=== PATIENT | female | born 1985 | race Caucasian/White ===

== ENCOUNTER → 2019-11-18 13:17 | Outpatient (BNVA) | payer BC, SELFPAY | PROVIDERS: Family Provider Family Medicine; PCP Family Medicine; Visit Provider Nurse Practitioner Women's Health | DX: O09.299 Supervision of pregnancy with other poor reproductive or obstetric history, unspecified trimester (principal); O24.311 Unspecified pre-existing diabetes mellitus in pregnancy, first trimester; E11.65 Type 2 diabetes mellitus with hyperglycemia; Z79.4 Long term (current) use of insulin; O24.811 Other pre-existing diabetes mellitus in pregnancy, first trimester; O09.521 Supervision of elderly multigravida, first trimester; O99.331 Smoking (tobacco) complicating pregnancy, first trimester; F31.9 Bipolar disorder, unspecified | CPT/HCPCS: 36415; 83036; 84315; 84443 ==

== ENCOUNTER → 2019-11-23 16:05 | Outpatient (BNVA) | payer BC, SELFPAY | PROVIDERS: Family Provider Family Medicine; PCP Family Medicine; Referring Provider Obstetrics & Gynecology; Visit Provider Obstetrics & Gynecology | DX: Z34.90 Encounter for supervision of normal pregnancy, unspecified, unspecified trimester (principal) | CPT/HCPCS: 36415; 84702 ==

== ENCOUNTER → 2019-11-24 10:46 | Outpatient (BNVA) | payer BC, SELFPAY | PROVIDERS: Family Provider Family Medicine; PCP Obstetrics & Gynecology; Visit Provider Nurse Practitioner | DX: F33.2 Major depressive disorder, recurrent severe without psychotic features (principal) | CPT/HCPCS: 99214; 99215 ==

== ENCOUNTER → 2019-11-25 17:27 | Outpatient (BNVA) | payer BC, SELFPAY | PROVIDERS: Family Provider Family Medicine; PCP Obstetrics & Gynecology; Visit Provider Obstetrics & Gynecology | DX: O09.521 Supervision of elderly multigravida, first trimester (principal); O20.0 Threatened abortion; E11.65 Type 2 diabetes mellitus with hyperglycemia; F31.9 Bipolar disorder, unspecified; O99.331 Smoking (tobacco) complicating pregnancy, first trimester | CPT/HCPCS: 80307; 84315; 84702; 85027; 86592; 86762; 86803; 86850; 86900; 87086; 87340 ==

== ENCOUNTER → 2019-12-06 11:58 | Outpatient (BNVA) | payer BC, SELFPAY | PROVIDERS: Family Provider Family Medicine; PCP Obstetrics & Gynecology; Referring Provider Obstetrics & Gynecology; Visit Provider Obstetrics & Gynecology | DX: O02.0 Blighted ovum and nonhydatidiform mole (principal) | CPT/HCPCS: 84702 ==

== ENCOUNTER → 2019-12-13 09:05 | Outpatient (BNVA) | payer BC, SELFPAY | PROVIDERS: Family Provider Family Medicine; PCP Obstetrics & Gynecology; Visit Provider Obstetrics & Gynecology | DX: E11.9 Type 2 diabetes mellitus without complications (principal); O02.0 Blighted ovum and nonhydatidiform mole | CPT/HCPCS: 36416; 80069; 82575; 82962; 84315; 84702 ==

== ENCOUNTER 2020-01-10 14:04 | Outpatient (CLI) | payer BC, SELFPAY ==
--- NOTE | 2020-01-10 | US_ITS ---
WS: [id number] TRANSVAGINAL PELVIC ULTRASOUND HISTORY: AMENORRHEA COMPARISON: None available. Uterus: 7.3 cm x 4.2 cm x 3.7 cm. Normal size anteverted uterus. No fibroid or mass. Endometrium: 0.4 cm. Mildly heterogeneous contents of the endometrium. No gestational sac. Right ovary: 2.3 cm x 1.5 cm x 2.5 cm. Small follicles. No solid mass. Left ovary: 4.0 cm x 3.8 cm x 2.8 cm. Complex cystic mass associated with the LEFT ovary measures 3.3 x 2.9 x 3.8 cm. Low level echoes. Retracting clot is identified. No free fluid. US/US transvaginal [id number] IMPRESSION: 1. No intrauterine gestation identified. 2. Complex cyst in the LEFT adnexa is probably a hemorrhagic cyst. 3. With a positive test ectopic is not excluded. Recommend serial follow-up with beta hCGs and follow-up ultrasound in one week.
== END 2020-01-10 14:05 | disposition home or self-care (01) ==
LOC: RADOUTREAD 01-11 08:34
PROVIDERS: Family Provider Family Medicine; PCP Obstetrics & Gynecology; Visit Provider Physician Assistant
DX: Z76.89 Persons encountering health services in other specified circumstances (principal)

== ENCOUNTER 2020-02-28 10:25 | Emergency (ER) | payer SELFPAY ==
[2020-02-28 10:38] VITALS: BP 132/105; PULSE 126; RESP 18; TEMP 36.6; O2SAT 99; BMI 24.3
--- NOTE | 2020-02-28 10:57 | W.ED.EXTPRO ---
HPI - Extremity Problem General: Chief complaint: Extremity Problem,Nontraumatic Stated complaint: SWELLING IN BOTH HIPS Time Seen by Provider: 02/28/20 10:47 History of Present Illness: HPI Narrative: Patient is a 34-year-old female who comes to the ED with right and left hip pain. Pain started about a month ago and has since progressed. Pain is localized to the lateral aspect of the hip and the right hip is more painful than the left hip. Patient denies any trauma or injury to cause pain. Patient did say she has been sleeping in her daughters bed recently which is a hard mattress and she thinks that has caused some of her pain. She has taken some hydrocodone tablets that were left over from a prior issue for her pain. She has not taken any pain medication today or this morning. Pain is worse when she is sitting or laying on right or left hip. Pain is very mild and improves when she is up and moving around. Currently rates pain at 10 out of 10 while here in the ED. She is also having some pain when she urinates that started a couple days ago, but denies any blood in the urine. Associated symptoms: Deny chest pain, fever(s) or rash Review of Systems Const: Denies: fever, chills or fatigue Eyes: Denies: change in vision or eye discomfort ENMT: Denies: throat pain, painful swallowing, nasal discharge or nasal congestion Card: Denies: chest pain, palpitations, edema, swelling of feet/ankles, shortness of breath on exertion or shortness of breath when lying down Resp: Denies: shortness of breath, productive cough or non-productive cough GI: Denies: abdominal pain, nausea, vomiting, diarrhea, constipation or blood in stool : Reports: painful urination; Denies: flank pain or blood in urine Musc: Reports: joint pain (right and left hip); Denies: neck pain, back pain or extremity swelling Skin/Breast: Denies: rash or new lesion Neuro: Denies: headache, numbness in extremities or weakness in extremities PFS ED PFSH: Medical History Bipolar 1 disorder Hypercholesteremia Major depressive disorder, recurrent severe without psychotic features Type 2 diabetes mellitus Intake--A1c: Start NPH and Humalog; stop Lantus Surgical History History of dilation and curettage History of spinal fusion Sx in 2007 S/P right knee surgery patella reconstruction Family History Grandmother Stroke PAT Hypertension PAT CAD (coronary artery disease) pat Father Stroke Hypertension CAD (coronary artery disease) Cancer Grandmother Diabetes mat Unknown Diabetes MAT. uncle, MAT cousin Sister Hypertension Mother Family history of thyroid problem Social History Smoking and tobacco status: current every day smoker cigarettes Years cigarettes smoked: 15 [ Other cigarette details: 5-10 cigarettes per day, smoked up to 1 ppd until positive UPT ] Smoking risk assessment/counseling performed?: Yes Alcohol intake: never Counseling given: No Additional social history: Physical Exam Const: COMMON NORMALS: no apparent distress, oriented x3 and alert GENERAL APPEARANCE: cooperative HENMT: COMMON NORMALS: normocephalic HEAD & SCALP: normocephalic MOUTH: oral and palatal mucosa normal THROAT: posterior oropharynx normal and uvula midline Neck/C-Spine: COMMON NORMALS: supple GENERAL: Yes normal visual inspection Resp: COMMON NORMALS: normal respiratory effort, no retractions, no use of accessory muscles and clear to auscultation bilaterally AUSCULTATION: clear to auscultation bilaterally Cardio: COMMON NORMALS: regular rate, regular rhythm, S1 normal heart sound, S2 normal heart sound, no gallops, no clicks, no murmurs and peripheral pulses 2+ throughout RATE: regular rate RHYTHM: regular rhythm HEART SOUNDS: S1 normal and S2 normal PERIPHERAL PULSES: pulses 2+ throughout GI: COMMON NORMALS: normal to inspection, nondistended, normoactive bowel sounds, soft to palpation, non-tender and no masses PALPATION: Yes soft : COMMON NORMALS: Yes no CVA tenderness BLADDER/KIDNEY EXAM: Yes no CVA tenderness Back/Pelvis: COMMON NORMALS: no CVA tenderness Extremity: COMMON NORMALS: normal capillary refill and no pedal edema NARRATIVE EXTREMITY EXAM: Patient was able to stand and ambulate normally. RIGHT LOWER EXTREMITY: Yes hip joint Right hip: Yes inspection (normal, no swelling), Yes palpation (Tender on lateral aspec), Yes ROM (normal) and Yes neurovascular exam (intact) LEFT LOWER EXTREMITY: Yes hip joint Left hip: Yes inspection (no swelling, unremarkable), Yes palpation (tender on lateral aspect), Yes ROM (normal) and Yes neurovascular exam (intact) Neuro: COMMON NORMALS: oriented x3 and moves all extremities SENSORIUM/ORIENTATION: Yes alert GAIT: Yes normal gait Skin: GENERAL SKIN EXAM: dry skin Course Vital Signs: Vital signs: Vital Signs Temperature 97.9 F 02/28/20 10:38 Pulse Rate 116 H 02/28/20 13:29 Respiratory Rate 16 02/28/20 13:29 Blood Pressure 125/96 02/28/20 13:29 Pulse Oximetry 99 02/28/20 12:12 MDM - Extremity (Nontraumatic) MDM Narrative: Medical decision making narrative: Patient is a 34-year-old female who comes to the ED with bilateral hip pain. Pain started over a month ago and there is no injury or trauma to provoke it. Physical exam showed patient in no acute distress and she she was able to ambulate normally without limping. Patient has some soft tissue tenderness over the lateral side of hip around the greater trochanter region. No imaging was performed since patient has no injury or trauma provoking pain. While here in the ED I gave patient a shot of Toradol and her pain improved. Patient was told to take ibuprofen 600 mg 3 times a day to help with the hip pain and inflammation and to apply ice on hip and rest. I told her to follow-up with your PCP in 7 to 10 days. Patient understood and agreed with plan. Lab Data: Attestation: I reviewed the patient's lab results. Labs: Lab Results 02/28/20 02/28/20 Range/Units 12:00 12:00 HCG, Qual Negative (Negative) Urine Color Yellow (Yellow) Urine Appearance Clear (CLEAR) Urine pH 5 (5-7) Ur Specific Gravit y 1.015 (1.005-1.030) Urine Protein Neg (Negative) Urine Glucose (UA) 4+ H (Normal) Urine Ketones Negative (Negative) Urine Blood Neg (Negative) Urine Nitrate Negative (Negative) Urine Bilirubin Neg (NEGATIVE) Urine Urobilinogen Norm (Negative) mg/dL Ur Leukocyte Nirali ase Negative (Negative) Urine RBC None (0-2) /hpf Urine WBC None (0-5) /hpf Ur Squamous Epith Cells 5-10 H (0-5) Urine Bacteria Trace (NONE) Discharge Plan Discharge Patient Disposition: Home, Self-Care Clinical Impression: Bilateral hip pain Condition: Stable Prescriptions: No Action Humulin N NPH U-100 Insulin 100 unit/mL suspension See Rx Instructions SUBCUT BID Qty: 10 RF: 3 insulin lispro [Humalog U-100 Insulin] 100 unit/mL solution See Rx Instructions SUBCUT BID Qty: 10 RF: 3 venlafaxine [Effexor XR] 75 mg capsule,extended release 24hr 75 mg PO QAM Qty: 30 RF: 1 prenat.vits,aayush,[id number] Tablet 1 tab PO DAILY RF: 0 acetaminophen [Tylenol Extra Strength] 500 mg tablet 1,000 mg PO Q6H PRNRF: 0 hydrocodone-acetaminophen 10-325 mg tablet 1 tab PO DAILY PRNRF: 0 Discharge Orders: Discharge Order (Routine); Ordered 02/28/20 Ordered By: Alvin Aguirre Referrals: Shadi Roche MD [Primary Care Provider] - Mal Vazquez MD [Family Provider] - Discharge Diet: Regular Discharge Activity: Increase activity as tolerated Activity Restrictions/Additional Instructions: Follow-up with your PCP in 7 days for reevaluation. Take [id number] ibuprofen 600 mg 3 times a day to help with pain and inflammation. Apply ice on hip and rest. Drink plenty of fluids and stay hydrated. Discharge Date/Time: 02/28/20 13:37 Coding Level of Care Code ED Wheelchair Van Driver for Ingrid Fwjudith Exam Comprehensive
[2020-02-28] MEDS: ketorolac 30 mg/mL INJ IM (12:08)
[2020-02-28 12:12] VITALS: BP 136/97; PULSE 101; RESP 16; O2SAT 99
[2020-02-28 12:25] LABS: Bilirubin Urine Neg (NEGATIVE); Blood Urine Neg (Negative); Glucose Urine UA 4+ (Normal); Ketones Urine Negative (Negative); Leukocyte Esterase Urine Negative (Negative); Nitrate Urine Negative (Negative); Protein Urine Neg (Negative); Specific Gravity, Urine 1.015 (1.005-1.030); Urine Appearance Clear (CLEAR); Urine Color Yellow (Yellow); Urobilinogen Urine Norm (Negative); pH Urine 5 (5-7)
[2020-02-28 12:27] LABS: HCG Qualitative Urine. Negative (Negative)
[2020-02-28 12:31] LABS: Add Urine Culture? No; Bacteria Urine TRACE
[2020-02-28 13:29] VITALS: BP 125/96; PULSE 116; RESP 16
== END 2020-02-28 13:37 | disposition home or self-care (01) ==
PROVIDERS: Emergency Provider Physician Assistant; Family Provider Family Medicine; PCP Obstetrics & Gynecology
DX: M25.552 Pain in left hip (principal); M25.551 Pain in right hip; E11.9 Type 2 diabetes mellitus without complications; Z98.1 Arthrodesis status; Z82.49 Family history of ischemic heart disease and other diseases of the circulatory system; Z83.3 Family history of diabetes mellitus; Z82.3 Family history of stroke; F17.210 Nicotine dependence, cigarettes, uncomplicated
CPT/HCPCS: 12345; 81001; 81025; 96372; 99282; 99283; J1885

== ENCOUNTER → 2020-03-01 11:22 | Outpatient (BNVA) | payer SELFPAY | PROVIDERS: Family Provider Family Medicine; PCP Obstetrics & Gynecology; Visit Provider Nurse Practitioner Family | DX: G89.29 Other chronic pain (principal); N91.2 Amenorrhea, unspecified; M25.50 Pain in unspecified joint; K62.5 Hemorrhage of anus and rectum; N63.20 Unspecified lump in the left breast, unspecified quadrant | CPT/HCPCS: 81025; 85651; 86431 ==

== ENCOUNTER 2020-03-18 16:50 | Emergency (ER) | payer SELFPAY ==
[2020-03-18 16:55] VITALS: BMI 22.7
[2020-03-18 16:58] VITALS: BP 136/97; PULSE 120; RESP 16; TEMP 36.6; O2SAT 98
--- NOTE | 2020-03-18 16:59 | W.ED.FEMALGU ---
HPI - Female Genitourinary General: Chief complaint: Urogenital-Female Stated complaint: vaginal bleeding Time Seen by Provider: 03/18/20 16:56 Source: patient Mode of arrival: ambulatory Limitations: no limitations History of Present Illness: HPI Narrative: 34-year-old female that states she has had vaginal bleeding started this morning. States she had a miscarriage back in November and had her first period 2 weeks ago. She states that started bleeding this morning and is been bleeding fairly heavy with multiple blood clots. She has lower abdominal cramping. She denies any lightheadedness. Denies any worsening improving factors. MD elicited complaint: vaginal bleeding Severity: moderate Vaginal discharge: none Vaginal bleeding: moderate Exacerbating factors: none Relieving factors: none Associated symptoms: Deny abdominal pain, headache(s) or nausea Date of Last Menstrual Period: 03/04/20 Review of Systems Const: Denies: fever, chills, body aches or change in appetite Eyes: Denies: blurry vision or eye discomfort ENMT: Denies: throat pain or dental pain Card: Denies: chest pain Resp: Denies: shortness of breath GI: Denies: abdominal pain, nausea, vomiting or diarrhea : Reports: vaginal bleeding Musc: Denies: neck pain or back pain Skin/Breast: Denies: rash Neuro: Denies: headache Psych: Denies: depression Simon/Lymph: Denies: easy bruising All/Imm: Denies: hives PFSH ED PFSH: Medical History Bipolar 1 disorder Hypercholesteremia Major depressive disorder, recurrent severe without psychotic features Type 2 diabetes mellitus Intake--A1c: Start NPH and Humalog; stop Lantus Surgical History History of dilation and curettage History of spinal fusion Sx in 2006 S/P right knee surgery patella reconstruction Family History Grandmother Stroke PAT Hypertension PAT CAD (coronary artery disease) pat Father Stroke Hypertension CAD (coronary artery disease) Cancer Grandmother Diabetes mat Unknown Diabetes MAT. uncle, MAT cousin Sister Hypertension Mother Family history of thyroid problem Social History Smoking and tobacco status: current every day smoker cigarettes Years cigarettes smoked: 15 [ Other cigarette details: 5-10 cigarettes per day, smoked up to 1 ppd until positive UPT ] Smoking risk assessment/counseling performed?: Yes Alcohol intake: never Counseling given: No Additional social history: Female Reproductive History: Date of last menstrual period: 03/04/20 Physical Exam Const: COMMON NORMALS: no apparent distress, oriented x3 and healthy appearing HENMT: COMMON NORMALS: normocephalic and head/scalp atraumatic HEAD & SCALP: normocephalic and atraumatic Eye: COMMON NORMALS: PERRL and EOMs intact bilaterally PUPIL: Yes PERRL Neck/C-Spine: COMMON NORMALS: full ROM and supple Chest: COMMONS NORMALS: inspection of chest normal and palpation of chest normal Resp: COMMON NORMALS: normal respiratory effort, no retractions, no use of accessory muscles and clear to auscultation bilaterally AUSCULTATION: clear to auscultation bilaterally Cardio: COMMON NORMALS: regular rate, regular rhythm and no murmurs RATE: regular rate RHYTHM: regular rhythm GI: COMMON NORMALS: normal to inspection, nondistended, normoactive bowel sounds, soft to palpation, non-tender and no masses PALPATION: Yes soft Extremity: COMMON NORMALS: normal to inspection and full ROM Neuro: COMMON NORMALS: oriented x3, moves all extremities and no focal motor deficits Psych: COMMON NORMALS: mental status grossly normal, thought process normal and cooperative THOUGHT PROCESS: normal thought process Skin: COMMON NORMALS: no rashes or lesions noted and no wounds GENERAL SKIN EXAM: no rashes or lesions noted Course Vital Signs: Vital signs: Vital Signs Temperature 98.4 F 03/18/20 18:35 Pulse Rate 106 H 03/18/20 18:35 Respiratory Rate 16 03/18/20 18:35 Blood Pressure 107/80 03/18/20 18:35 Pulse Oximetry 98 03/18/20 18:35 MDM - Female MDM Narrative: Medical decision making narrative: Patient presents here with vaginal bleeding is likely heavy.. Patient is not her hemoglobin here is normal. Patient's blood pressure is normal as well and she has no lightheadedness. Patient is stable for discharge and is to follow-up with her OB in 2 to 4 days. Patient is to return to the ER if worsening. Patient understands and agrees to plan. Lab Data: Labs: Lab Results 03/18/20 03/18/20 03/18/20 Range/Units 17:04 17:04 17:04 WBC 12.7 H (4.0-10.0) 10^3/ uL RBC 4.92 (4.1-5.3) 10^6/u L Hgb 11.9 (11.5-15.3) g/dL Hct 38.6 (37.0-47.0) % MCV 78.5 L (81-99) fL MCH 24.2 L (28.0-34.0) pg MCHC 30.8 (30.0-36.0) g/dL RDW 16.5 H (12.1-15.1) % Plt Count 313 (130-400) 10^3/c mm MPV 12.0 H (7.4-10.4) fL Neut % (Auto) 54.6 % Lymph % (Auto) 37.2 % Amelia % (Auto) 5.1 % Eos % (Auto) 2.3 % Baso % (Auto) 0.6 % Neut # (Auto) 7.0 (1.8-7.7) 10^3/u L Lymph # (Auto) 4.7 (0.8-4.8) 10^3/u L Amelia # (Auto) 0.7 (0.2-0.9) 10^3/u L Eos # (Auto) 0.3 (0.0-0.8) 10^3/u L Baso # (Auto) 0.1 (0.0-0.1) 10^3/u L Nucleated RBC % (a uto) 0 % Nucleated RBCs # 0.0 /100WBC Sodium 138 (136-145) mmol/L Potassium 4.2 (3.5-5.1) mmol/L Chloride 97 L (98-107) mmol/L Carbon Dioxide 25 (22-29) mmol/L Anion Gap 20.2 H (5-19) BUN 9 (6-20) mg/dL Creatinine 0.7 (0.5-0.9) mg/dL GFR Calculation 94.7 (90-130) mL/min Glucose 288 H (65-115) mg/dL Calculated Osmolal ity 293 (285-295) mOsm/k g Calcium 10.5 (8.5-10.5) mg/dL Ser , Juan Carlos i-Qnt 0.50 mIU/mL Discharge Plan Discharge Patient Disposition: Home, Self-Care Clinical Impression: Vaginal bleeding Condition: Stable Prescriptions: No Action Humulin N NPH U-100 Insulin 100 unit/mL suspension See Rx Instructions SUBCUT BID Qty: 10 RF: 3 insulin lispro [Humalog U-100 Insulin] 100 unit/mL solution See Rx Instructions SUBCUT BID Qty: 10 RF: 3 venlafaxine [Effexor XR] 75 mg capsule,extended release 24hr 75 mg PO QAM Qty: 30 RF: 1 prenat.vits,aayush,[id number] Tablet 1 tab PO DAILY RF: 0 acetaminophen [Tylenol Extra Strength] 500 mg tablet 1,000 mg PO Q6H PRNRF: 0 hydrocodone-acetaminophen 10-325 mg tablet 1 tab PO DAILY PRNRF: 0 Discharge Orders: Discharge Order (Routine); Ordered 03/18/20 Ordered By: David Bentley Referrals: Shadi Roche MD [Primary Care Provider] - 1-3 days Mal Vazquez MD [Family Provider] - Discharge Diet: Advance as tolerated Discharge Activity: Resume usual activity Patient Instructions: Menstruation (ED) Discharge Date/Time: 03/18/20 18:36 Coding Level of Care Code ED Residential Remodeling Subcontractor for Dharag Fwd Exam Comprehensive
[2020-03-18] MEDS: HYDROcodone-acetaminophen 5-325 mg Tablet 1 TAB PO (17:03)
[2020-03-18 17:11] LABS: Basophils # 0.1 10^3/uL (0.0-0.1); Basophils % 0.6 %; Eosinophils # 0.3 10^3/uL (0.0-0.8); Eosinophils % 2.3 %; Hematocrit 38.6 % (37.0-47.0); Hemoglobin 11.9 g/dL (11.5-15.3); Lymphocytes # 4.7 10^3/uL (0.8-4.8); Lymphocytes % 37.2 %; Mean Corpuscular HGB Conc 30.8 g/dL (30.0-36.0); Mean Corpuscular Hemoglobin 24.2 pg (28.0-34.0); Mean Corpuscular Volume 78.5 fL (81-99); Monocytes # 0.7 10^3/uL (0.2-0.9); Monocytes % 5.1 %; Neutrophils % 54.6 %; Nucleated Red Blood Cells % 0 %; Platelet Count 313 10^3/cmm (130-400); Red Blood Count 4.92 10^6/uL (4.1-5.3); Red Cell Distribution Width 16.5 % (12.1-15.1); White Blood Count 12.7 10^3/uL (4.0-10.0)
[2020-03-18 17:37] LABS: Anion Gap 20.2 (5-19); Blood Urea Nitrogen 9 mg/dL (6-20); Calcium 10.5 mg/dL (8.5-10.5); Carbon Dioxide 25 mmol/L (22-29); Chloride 97 mmol/L (98-107); Glomerular Filtration Rate 94.7 mL/min (90-130); Glucose 288 mg/dL (65-115); Osmolality Calculated 293 mOsm/kg (285-295); Potassium 4.2 mmol/L (3.5-5.1); Sodium 138 mmol/L (136-145)
[2020-03-18] MEDS: sodium chloride 0.9% 1,000 ML 999 ML IV (17:46)
[2020-03-18 18:00] VITALS: BP 105/68; PULSE 106; RESP 18; O2SAT 98
[2020-03-18 18:35] VITALS: BP 107/80; PULSE 106; RESP 16; TEMP 36.9; O2SAT 98
--- NOTE | 2020-03-20 12:15 | DCPLANNER ---
land surveyor manager had message to schedule a follow up appointment for patient with [facility]. land surveyor manager called the [facility], spoke with Myrtle. land surveyor manager gave clinic patients information, was told that it would be printed and reviewed. Clinic will call showcase trimmer and patient with appointment information.
--- NOTE | 2020-03-22 12:38 | DCPLANNER ---
Patient has a follow up appointment scheduled for Friday, March 27, [address] at 2:[address] Roche. Clinic will call patient with appointment information.
--- NOTE | 2020-04-03 15:04 | DCPLANNER ---
Patient did not attend appointment scheduled for 03.27.20 with [facility].
== END 2020-03-18 18:36 | disposition home or self-care (01) ==
PROVIDERS: Emergency Provider Emergency Medicine; Family Provider Family Medicine; PCP Obstetrics & Gynecology
DX: N93.9 Abnormal uterine and vaginal bleeding, unspecified (principal); Z79.4 Long term (current) use of insulin; F17.210 Nicotine dependence, cigarettes, uncomplicated; E11.9 Type 2 diabetes mellitus without complications
CPT/HCPCS: 12345; 80048; 84702; 85025; 96360; 99283; J7030

== ENCOUNTER → 2020-08-01 11:06 | Outpatient (BNVA) | payer SELFPAY | PROVIDERS: Family Provider Family Medicine; PCP Obstetrics & Gynecology; Visit Provider Nurse Practitioner Family | DX: O09.521 Supervision of elderly multigravida, first trimester (principal); O24.811 Other pre-existing diabetes mellitus in pregnancy, first trimester; E11.65 Type 2 diabetes mellitus with hyperglycemia | CPT/HCPCS: 81000 ==

== ENCOUNTER 2021-04-05 11:50 | Outpatient (CLI) | payer OTHER, SELFPAY ==
--- NOTE | 2021-04-05 11:55 | MM_ITS ---
WS: [id number] BILATERAL DIGITAL DIAGNOSTIC MAMMOGRAM MAMMOGRAPHY WITH CAD CLINICAL INFORMATION: LT BREAST LUMP COMPARISON: None. TECHNIQUE: Bilateral CC, MLO, and ML views. FINDINGS: The breasts are composed of heterogeneous fibroglandular density, which can limit the detection of sm all underlying mass lesions. Palpable markers left breast. Dense left breast parenchymal tissue. Lobulated 12:00 lesion with parti ally obscured margins measuring 2.1 x 1.5 cm. Ultrasound is pending. Unremarkable right breast. ULTRASOUND BREAST LEFT TECHNIQUE: Ultrasound left breast focused area of concern. CLINICAL INFORMATION: LT BREAST LUMP FINDINGS: Ultrasound left breast at the 12:00 position. There is a hypoechoic lobulated complex lesion measurin g 1.6 x 2.7 x 1.5 cm corresponding to the mammographic findings. Recommend further evaluation ultraso und-guided biopsy. Tiny incidental cyst at the 9:00 position MM/[id number] IMPRESSION: BI-RADS: 4-Suspicious Finding-Biopsy Should Be Considered FOLLOW UP: US Guided Biopsy Recommended
== END 2021-04-05 11:51 | disposition home or self-care (01) ==
LOC: RADSHAW 11:54
PROVIDERS: Visit Provider Nurse Practitioner Family
DX: N63.20 Unspecified lump in the left breast, unspecified quadrant (principal)
CPT/HCPCS: 76642; 77066

== ENCOUNTER 2021-04-17 13:59 | Outpatient (CLI) | payer MEDICAID, SELFPAY ==
--- NOTE | 2021-04-17 14:16 | US_ITS ---
WS: [id number] ULTRASOUND-GUIDED LEFT BREAST BIOPSY CLINICAL INFORMATION: LEFT BREAST LUMP COMPARISON: None. FINDINGS: The procedure including risks, benefits, and complications were discussed with the patient who agreed to proceed. Using sterile technique patient was prepped and draped in the usual sterile fashion. Aft er 1% lidocaine utilizing real-time ultrasound guidance 5 14-gauge cores were obtained of the left br east lesion at the 12 o'clock position. Subsequently a titanium clip was placed in the biopsy cavity. No immediate complications. Pathology demonstrates A. Breast, left, 12 o'clock, ultrasound-guided biopsy: -Benign breast tissue with fibrocystic changes and focal fibroadenomatoid change. -Duct ectasia with chronic inflammation. -No malignancy identified. US/[id number] IMPRESSION: 1. Uncomplicated ultrasound-guided left breast biopsy. 2. The pathology demonstrates benign breast tissue with fibroadenomatoid conklin e. No malignancy identified. BI-RADS: 3-Probably Benign FOLLOW UP: 6 Month Follow-up RECOMMEND 6 MONTH FOLLOW-UP LEFT BREAST DIAGNOSTIC MAMMOGRAPHY AND ULTRASOUND T O CONFIRM STABILITY OF THE LEFT BREAST LESION.
== END 2021-04-17 14:00 | disposition home or self-care (01) ==
PROVIDERS: Visit Provider Nurse Practitioner Family
DX: N60.42 Mammary duct ectasia of left breast (principal); N63.25 Unspecified lump in the left breast, overlapping quadrants
CPT/HCPCS: 19083; 88305

== ENCOUNTER → 2021-08-21 11:55 | Outpatient (BNVA) | payer SELFPAY | PROVIDERS: Visit Provider Nurse Practitioner Family | DX: E11.65 Type 2 diabetes mellitus with hyperglycemia (principal); E78.00 Pure hypercholesterolemia, unspecified | CPT/HCPCS: 80053; 80061; 83036; 83721 ==

== ENCOUNTER 2021-11-13 13:36 | Outpatient (CLI) | payer SELFPAY ==
--- NOTE | 2021-11-13 14:20 | MM_ITS ---
WS: [id number] LEFT DIGITAL MAMMOGRAPHY WITH CAD CLINICAL INFORMATION: LEFT 6 MO FOLLOW UP COMPARISON: April 05, 2021 TECHNIQUE: 6 views of the left breast were obtained. FINDINGS: The left breast is composed of heterogeneous fibroglandular density tissue, which can limit the detec tion of small underlying mass lesions. Stable well-circumscribed lobulated lesion at 12:00 position a ppears stable compared to previous. Ultrasound is pending. ULTRASOUND BREAST LEFT TECHNIQUE: Ultrasound left breast focused area of concern. CLINICAL INFORMATION: LEFT 6 MO FOLLOW UP COMPARISON: April 05, 2021 FINDINGS: Ultrasound left breast at the 12:00 position 1 cm from the nipple. Stable well-circumscribed mixed ec hogenicity lobulated lesion measuring 2.2 x 1.3 x 1.5 cm unchanged from 04/05/21. No other significant changes compared to previous. MM/[id number] IMPRESSION: BI-RADS: 2-Benign FOLLOW UP: 6 Month Follow-up RECOMMEND DIAGNOSTIC MAMMOGRAPHY AND ULTRASOUND LEFT BREAST IN 6 MONTHS AND THE N 1 YEAR TO DOCUMENT STABILITY.
== END 2021-11-13 13:37 | disposition home or self-care (01) ==
LOC: RADSHAW 13:44
PROVIDERS: Visit Provider Nurse Practitioner Family
DX: N63.25 Unspecified lump in the left breast, overlapping quadrants (principal)
CPT/HCPCS: 76642; 77065

== ENCOUNTER 2022-05-17 17:03 | Emergency (ER) | payer MEDICAID, SELFPAY ==
[2022-05-17 17:13] VITALS: BP 117/74; PULSE 140; RESP 20; TEMP 36.5; O2SAT 97; BMI 20.9
[2022-05-17 17:43] LABS: Basophils # 0.1 10^3/uL (0.0-0.1); Basophils % 0.6 %; Eosinophils # 0.3 10^3/uL (0.0-0.8); Eosinophils % 2.2 %; Hematocrit 35.9 % (37.0-47.0); Hemoglobin 11.1 g/dL (11.5-15.3); Lymphocytes # 1.2 10^3/uL (0.8-4.8); Lymphocytes % 9.5 %; Mean Corpuscular HGB Conc 30.9 g/dL (30.0-36.0); Mean Corpuscular Hemoglobin 22.9 pg (28.0-34.0); Mean Platelet Volume 12.5 fL (7.4-10.4); Monocytes # 0.7 10^3/uL (0.2-0.9); Monocytes % 5.2 %; Neutrophils # 10.24 10^3/uL (1.8-7.7); Neutrophils % 82.1 %; Nucleated Red Blood Cells % 0 %; Platelet Count 313 10^3/cmm (130-400); Red Blood Count 4.85 10^6/uL (4.1-5.3); Red Cell Distribution Width 17.3 % (12.1-15.1); White Blood Count 12.5 10^3/uL (4.0-10.0)
[2022-05-17 17:45] LABS: Add Urine Microscopic? YES; Bilirubin Urine Neg (Negative); Blood Urine Neg (Negative); Glucose Urine UA 4+ (Normal); Ketones Urine Negative (Negative); Leukocyte Esterase Urine Trace (Negative); Nitrate Urine Negative (Negative); Protein Urine Neg (Negative); Urine Appearance Clear (CLEAR); Urine Color Yellow (Yellow); Urobilinogen Urine Norm (Negative); pH Urine 5 (5-7)
[2022-05-17 17:46] LABS: Add Urine Culture? No; Bacteria Urine 1+ /hpf; Squamous Epithelial Cell Urine 0-4 /hpf (0-5); WBC Urine 15-25 /hpf (0-5)
[2022-05-17 18:17] VITALS: BP 131/79; PULSE 118; RESP 18; O2SAT 100
--- NOTE | 2022-05-17 18:32 | ED_ITS ---
Documented by User: NUNU Weller 05/18/22 02:25 HPI - Abdominal Pain General: Chief Complaint: Abdominal Pain Stated Complaint: low back pain Time Seen by Provider: 05/17/22 18:04 History of Present Illness: Patient is a 36-year-old female comes to the ED with bladder pain and bilateral flank pain. Patient says 2 weeks ago she was treated for UTI with amoxicillin for 10 days. She states that her dysuria and hematuria resolved but she was still having the bladder cramps and pains after taking the amoxicillin. Yesterday the bladder pain got worse and then she started developing bilateral flank pain. Endorses having some nausea currently. She says her pain is rated an 8 out of 10. She took some ibuprofen before coming to the ED. Sdenies any fevers, chills, vomiting, dysuria or hematuria. Associated Symptoms: Denies chills, constipation, diarrhea, dysuria, fever(s), hematochezia, hematuria, nausea and vomiting Related Data: Date of Last Menstrual Period: 05/10/22 Review of Systems Const: Denies: fever(s), chills or fatigue Eyes: Denies: change in vision or eye discomfort ENMT: Denies: throat pain, odynophagia, nasal discharge or nasal congestion Card: Denies: chest pain, palpitations, edema, swelling of feet/ankles, dyspnea on exertion or orthopnea Resp: Denies: dyspnea, productive cough or non-productive cough GI: Denies: abdominal pain, nausea, vomiting, diarrhea, constipation or hematochezia : Reports: flank pain (Bilateral flank pain) and other (Bladder pain and cramping.); Denies: dysuria or hematuria Musc: Denies: neck pain, back pain or extremity swelling Skin/Breast: Denies: rash or new lesions Neuro: Denies: headache(s), numbness in extremities or weakness in extremities PFS ED PFSH: Medical History Bipolar 1 disorder Hypercholesteremia Major depressive disorder, recurrent severe without psychotic features Psychiatric care Type 2 diabetes mellitus Intake--A1c: Start NPH and Humalog; stop Lantus Surgical History History of dilation and curettage History of spinal fusion Sx in 2007 S/P right knee surgery patella reconstruction Family History Grandmother Stroke PAT Hypertension PAT CAD (coronary artery disease) pat Father Stroke Hypertension CAD (coronary artery disease) Cancer Grandmother Diabetes mat Unknown Diabetes MAT. uncle, MAT cousin Sister Hypertension Mother Family history of thyroid problem Social History Smoking and tobacco status: current every day smoker cigarettes Years cigarettes smoked: 15 [ Other cigarette details: 5-10 cigarettes per day, smoked up to 1 ppd until positive UPT] Smoking risk assessment/counseling performed?: Yes Alcohol intake: never Counseling given: No Female Reproductive History: Date of last menstrual period: 05/10/22 Physical Exam Const: COMMON NORMALS: no acute distress, patient oriented x3 and alert GENERAL APPEARANCE: cooperative and comfortable HENMT: COMMON NORMALS: normocephalic HEAD & SCALP: normocephalic MOUTH: Normal oral and palatal mucosa present THROAT: posterior oropharynx normal and uvula midline Neck/C-Spine: COMMON NORMALS: supple GENERAL: Yes normal visual inspection Resp: COMMON NORMALS: normal respiratory effort, No retractions, No use of accessory muscles and clear to auscultation bilaterally AUSCULTATION: clear to auscultation bilaterally Cardio: COMMON NORMALS: regular rate, regular rhythm, S1 normal heart sound present, S2 normal heart sound present, No gallops present (Cardio), No clicks present (Cardio), No murmurs present (Cardio) and Peripheral pulses 2+ throughout RATE: regular rate RHYTHM: regular rhythm HEART SOUNDS: S1 normal heart sound present and S2 normal heart sound present PERIPHERAL PULSES: Peripheral pulses 2+ throughout GI: COMMON NORMALS: Normal to inspection, nondistended, normoactive bowel sounds present, Soft to palpation, non-tender and no masses PALPATION: Yes Soft to palpation and Yes Bladder palpation abnormal : BLADDER/KIDNEY EXAM: Yes Bladder palpation abnormal Bladder abnormal details: tender and Yes CVA tenderness bilateral Back/Pelvis: GENERAL BACK: Yes CVA tenderness Extremity: COMMON NORMALS: normal to inspection Neuro: COMMON NORMALS: patient oriented x3 SENSORIUM/ORIENTATION: Yes alert GAIT: Yes Normal gait present Skin: GENERAL SKIN EXAM: dry skin Course Vital Signs: Vital signs: Vital Signs Temperature 97.7 F 05/17/22 17:13 Pulse Rate 98 05/17/22 23:14 Respiratory Rate 17 05/17/22 23:14 Blood Pressure 119/76 05/17/22 23:14 Pulse Oximetry 98 05/17/22 23:14 MDM - Abdominal Pain Medical Decision Making Patient is a 36-year-old female comes to the ED with bilateral flank pain and bladder pain. Patient was treated for UTI approximately 10 days ago but feels like it has not gotten any better. Initial vitals patient was tachycardic with a pulse of 140 the rest of vitals were stable. Exam of patient showed bilateral CVA tenderness and bladder tenderness to palpation. White blood cell count 12.5 and UA showed signs of UTI patient's initial lactic acid was 3.5. Blood cultures pending. Rest of labs were unremarkable. CT abdomen pelvis showed no acute findings. Patient was given 2 L of IV fluids, Rocephin and some nausea and pain meds and her symptoms were controlled. She was able to tolerate p.o. fluids. Lactic was rechecked and it was 1.7. Patient was stable for discharge home and outpatient treatment. She is diagnosed with pyelonephritis and was sent home with a prescription for ciprofloxacin, Zofran and some pain meds. Told to follow-up with PCP in the next week for reevaluation. Return to ED precautions given. Patient understood and agreed with plan. Lab Data I reviewed the patient's lab results. : 05/17/22 17:37 05/17/22 18:18 Labs/Radiology: Radiology Impressions Abdomen/Pelvis CT 05/17/22 19:25 IMPRESSION: No acute findings. Laboratory Results WBC 12.5 10^3/uL (4.0-10.0) H 05/17/22 17:37 RBC 4.85 10^6/uL (4.1-5.3) 05/17/22 17:37 Hgb 11.1 g/dL (11.5-15.3) L 05/17/22 17:37 Hct 35.9 % (37.0-47.0) L 05/17/22 17:37 MCV 74.0 fl (81-99) L 05/17/22 17:37 MCH 22.9 pg (28.0-34.0) L 05/17/22 17:37 MCHC 30.9 g/dL (30.0-36.0) 05/17/22 17:37 RDW 17.3 % (12.1-15.1) H 05/17/22 17:37 Plt Count 313 10^3/cmm (130-400) 05/17/22 17:37 MPV 12.5 fL (7.4-10.4) H 05/17/22 17:37 Neut % (Auto) 82.1 % 05/17/22 17:37 Lymph % (Auto) 9.5 % 05/17/22 17:37 [place] % (Auto) 5.2 % 05/17/22 17:37 Eos % (Auto) 2.2 % 05/17/22 17:37 Baso % (Auto) 0.6 % 05/17/22 17:37 Neut # (Auto) 10.24 10^3/uL (1.8-7.7) H 05/17/22 17:37 Lymph # (Auto) 1.2 10^3/uL (0.8-4.8) 05/17/22 17:37 [place] # (Auto) 0.7 10^3/uL (0.2-0.9) 05/17/22 17:37 Eos # (Auto) 0.3 10^3/uL (0.0-0.8) 05/17/22 17:37 Baso # (Auto) 0.1 10^3/uL (0.0-0.1) 05/17/22 17:37 Nucleated RBC % (auto) 0 % 05/17/22 17:37 Nucleated RBCs # 0.0 /100WBC 05/17/22 17:37 Sodium 138 mmol/L (136-145) 05/17/22 18:18 Potassium 3.4 mmol/L (3.5-5.1) L 05/17/22 18:18 Chloride 100 mmol/L (98-107) 05/17/22 18:18 Carbon Dioxide 23 mmol/L (22-29) 05/17/22 18:18 Anion Gap 18.4 (5-19) 05/17/22 18:18 BUN 5 mg/dL (6-20) L 05/17/22 18:18 Creatinine 0.6 mg/dL (0.5-0.9) 05/17/22 18:18 GFR Calculation 111.9 mL/min (90-130) 05/17/22 18:18 Glucose 328 mg/dL (65-115) H 05/17/22 18:18 Calculated Osmolality 296 mOsm/kg (285-295) H 05/17/22 18:18 Lactic Acid 1.7 mmol/L (0.5-2.2) 05/17/22 22:10 Lactic Acid (Sepsis) 2.6 mmol/L (0.5-2.2) H 05/17/22 20:39 Calcium 9.4 mg/dL (8.5-10.5) 05/17/22 18:18 Total Bilirubin 0.3 mg/dL (0.15-1.2) 05/17/22 18:18 AST 33 U/L (0-32) H 05/17/22 18:18 ALT 31 U/L (0-33) 05/17/22 18:18 Alkaline Phosphatase 98 IU/L (35-105) 05/17/22 18:18 Total Protein 6.8 g/dL (6.6-8.7) 05/17/22 18:18 Albumin 4.1 g/dL (3.5-5.2) 05/17/22 18:18 Globulin 2.7 g/dL (1.3-4.6) 05/17/22 18:18 HCG, Qual Negative (Negative) 05/17/22 18:18 Urine Color Yellow (Yellow) 05/17/22 17:22 Urine Appearance Clear (CLEAR) 05/17/22 17:22 Urine pH 5 (5-7) 05/17/22 17:22 Ur Specific [place] 1.020 (1.005-1.030) 05/17/22 17:22 Urine Protein Neg (Negative) 05/17/22 17:22 Urine Glucose (UA) 4+ (Normal) H 05/17/22 17:22 Urine Ketones Negative (Negative) 05/17/22 17:22 Urine Blood Neg (Negative) 05/17/22 17:22 Urine Nitrate Negative (Negative) 05/17/22 17:22 Urine Bilirubin Neg (Negative) 05/17/22 17:22 Urine Urobilinogen Norm mg/dL (Negative) 05/17/22 17:22 Ur Leukocyte Esterase Trace (Negative) H 07/02/22 17:22 Urine RBC None /hpf (0-2) 05/17/22 17:22 Urine WBC 15-25 /hpf (0-5) H 05/17/22 17:22 Ur Squamous Epith Cells 0-4 /hpf (0-5) H 05/17/22 17:22 Amorphous Sediment Not Reportable 05/17/22 17:22 Urine Bacteria 1+ /hpf (NONE) H 05/17/22 17:22 Discharge Plan Discharge Patient Disposition: Home Clinical Impression: Pyelonephritis Condition: Stable Prescriptions: New ciprofloxacin HCl 500 mg tablet 500 mg PO BID 7 Days Qty: 14 0RF ondansetron 4 mg tablet,disintegrating 4 mg PO Q8H PRN (Reason: nausea and vomiting) Qty: 15 0RF No Action ibuprofen 800 mg tablet 800 mg PO Q8H PRN (Reason: pain) 0RF Lantus Solostar U-100 Insulin 100 unit/mL (3 mL) insulin pen 60 unit SUBCUT DAILY 0RF venlafaxine [Effexor XR] 150 mg capsule,extended release 24hr 150 mg PO DAILY Qty: 30 2RF venlafaxine [Effexor XR] 75 mg capsule,extended release 24hr 75 mg PO DAILY Qty: 30 2RF trazodone 50 mg tablet 100 mg PO .HS Qty: 60 2RF Discharge Orders: Discharge ED (Routine); Ordered 05/17/22 Ordered By: Alvin Aguirre Discharge Diet: Regular Discharge Activity: Increase activity as tolerated Patient Instructions: Pyelonephritis Activity Restrictions/Additional Instructions: Follow-up with medical provider as directed in the next 3 to 5 days for reevaluation. Take medications as prescribed. Return to the ER or your medical provider if condition worsens. Please read and understand discharge instructions. Thank you for choosing [facility] for your healthcare needs today. Please realize this is an emergency room and that we are providing you with a medical screening exam and this may not be complete and all inclusive of all the testing and or work up that you may need to determine your ailment or severity of your illness. It is very important that you follow up as instructed or that you return to the Emergency Department should you have concerns or if your condition changes or worsens in any way. Coding Level of Care Code ED Composing Machine Operator for Chg Fwd Exam Comprehensive Documented by User: Ty Ospina DO 05/19/22 15:20 HPI - Abdominal Pain General: Chief Complaint: Abdominal Pain Stated Complaint: low back pain Time Seen by Provider: 05/17/22 18:04 [facility] ED PFSH: Medical History Bipolar 1 disorder Hypercholesteremia Major depressive disorder, recurrent severe without psychotic features Psychiatric care Type 2 diabetes mellitus Intake--A1c: Start NPH and Humalog; stop Lantus Surgical History History of dilation and curettage History of spinal fusion Sx in 2006 S/P right knee surgery patella reconstruction Family History Grandmother Stroke PAT Hypertension PAT CAD (coronary artery disease) pat Father Stroke Hypertension CAD (coronary artery disease) Cancer Grandmother Diabetes mat Unknown Diabetes MAT. uncle, MAT cousin Sister Hypertension Mother Family history of thyroid problem Social History Smoking and tobacco status: current every day smoker cigarettes Years cigarettes smoked: 15 [ Other cigarette details: 5-10 cigarettes per day, smoked up to 1 ppd until positive UPT] Smoking risk assessment/counseling performed?: Yes Alcohol intake: never Counseling given: No Course Vital Signs: Vital signs: Vital Signs Temperature 97.7 F 05/17/22 17:13 Pulse Rate 98 05/17/22 23:14 Respiratory Rate 17 05/17/22 23:14 Blood Pressure 119/76 05/17/22 23:14 Pulse Oximetry 98 05/17/22 23:14 MDM - Abdominal Pain Medical Decision Making Patient is a 36-year-old female comes to the ED with bilateral flank pain and bladder pain. Patient was treated for UTI approximately 10 days ago but feels like it has not gotten any better. Initial vitals patient was tachycardic with a pulse of 140 the rest of vitals were stable. Exam of patient showed bilateral CVA tenderness and bladder tenderness to palpation. White blood cell count 12.5 and UA showed signs of UTI patient's initial lactic acid was 3.5. Blood cultures pending. Rest of labs were unremarkable. CT abdomen pelvis showed no acute findings. Patient was given 2 L of IV fluids, Rocephin and some nausea and pain meds and her symptoms were controlled. She was able to tolerate p.o. fluids. Lactic was rechecked and it was 1.7. Patient was stable for discharge home and outpatient treatment. She is diagnosed with pyelonephritis and was sent home with a prescription for ciprofloxacin, Zofran and some pain meds. Told to follow-up with PCP in the next week for reevaluation. Return to ED precautions given. Patient understood and agreed with plan. This patient was originally seen by Mr. Timothy PA-C. I agree with his history, evaluation, and treatment. Lab Data : 05/17/22 17:37 05/17/22 18:18 Labs/Radiology: Radiology Impressions Abdomen/Pelvis CT 05/17/22 19:25 IMPRESSION: No acute findings. Laboratory Results WBC 12.5 10^3/uL (4.0-10.0) H 05/17/22 17:37 RBC 4.85 10^6/uL (4.1-5.3) 05/17/22 17:37 Hgb 11.1 g/dL (11.5-15.3) L 05/17/22 17:37 Hct 35.9 % (37.0-47.0) L 05/17/22 17:37 MCV 74.0 fl (81-99) L 05/17/22 17:37 MCH 22.9 pg (28.0-34.0) L 05/17/22 17:37 MCHC 30.9 g/dL (30.0-36.0) 05/17/22 17:37 RDW 17.3 % (12.1-15.1) H 05/17/22 17:37 Plt Count 313 10^3/cmm (130-400) 05/17/22 17:37 MPV 12.5 fL (7.4-10.4) H 05/17/22 17:37 Neut % (Auto) 82.1 % 05/17/22 17:37 Lymph % (Auto) 9.5 % 05/17/22 17:37 [place] % (Auto) 5.2 % 05/17/22 17:37 Eos % (Auto) 2.2 % 05/17/22 17:37 Baso % (Auto) 0.6 % 05/17/22 17:37 Neut # (Auto) 10.24 10^3/uL (1.8-7.7) H 05/17/22 17:37 Lymph # (Auto) 1.2 10^3/uL (0.8-4.8) 05/17/22 17:37 [place] # (Auto) 0.7 10^3/uL (0.2-0.9) 05/17/22 17:37 Eos # (Auto) 0.3 10^3/uL (0.0-0.8) 05/17/22 17:37 Baso # (Auto) 0.1 10^3/uL (0.0-0.1) 05/17/22 17:37 Nucleated RBC % (auto) 0 % 05/17/22 17:37 Nucleated RBCs # 0.0 /100WBC 05/17/22 17:37 Sodium 138 mmol/L (136-145) 05/17/22 18:18 Potassium 3.4 mmol/L (3.5-5.1) L 05/17/22 18:18 Chloride 100 mmol/L (98-107) 05/17/22 18:18 Carbon Dioxide 23 mmol/L (22-29) 05/17/22 18:18 Anion Gap 18.4 (5-19) 05/17/22 18:18 BUN 5 mg/dL (6-20) L 05/17/22 18:18 Creatinine 0.6 mg/dL (0.5-0.9) 05/17/22 18:18 GFR Calculation 111.9 mL/min (90-130) 05/17/22 18:18 Glucose 328 mg/dL (65-115) H 05/17/22 18:18 Calculated Osmolality 296 mOsm/kg (285-295) H 05/17/22 18:18 Lactic Acid 1.7 mmol/L (0.5-2.2) 05/17/22 22:10 Lactic Acid (Sepsis) 2.6 mmol/L (0.5-2.2) H 05/17/22 20:39 Calcium 9.4 mg/dL (8.5-10.5) 05/17/22 18:18 Total Bilirubin 0.3 mg/dL (0.15-1.2) 05/17/22 18:18 AST 33 U/L (0-32) H 05/17/22 18:18 ALT 31 U/L (0-33) 05/17/22 18:18 Alkaline Phosphatase 98 IU/L (35-105) 05/17/22 18:18 Total Protein 6.8 g/dL (6.6-8.7) 05/17/22 18:18 Albumin 4.1 g/dL (3.5-5.2) 05/17/22 18:18 Globulin 2.7 g/dL (1.3-4.6) 05/17/22 18:18 HCG, Qual Negative (Negative) 05/17/22 18:18 Urine Color Yellow (Yellow) 05/17/22 17:22 Urine Appearance Clear (CLEAR) 05/17/22 17:22 Urine pH 5 (5-7) 05/17/22 17:22 Ur Specific [place] 1.020 (1.005-1.030) 05/17/22 17:22 Urine Protein Neg (Negative) 05/17/22 17:22 Urine Glucose (UA) 4+ (Normal) H 05/17/22 17:22 Urine Ketones Negative (Negative) 05/17/22 17:22 Urine Blood Neg (Negative) 05/17/22 17:22 Urine Nitrate Negative (Negative) 05/17/22 17:22 Urine Bilirubin Neg (Negative) 05/17/22 17:22 Urine Urobilinogen Norm mg/dL (Negative) 05/17/22 17:22 Ur Leukocyte Esterase Trace (Negative) H 05/17/22 17:22 Urine RBC None /hpf (0-2) 05/17/22 17:22 Urine WBC 15-25 /hpf (0-5) H 05/17/22 17:22 Ur Squamous Epith Cells 0-4 /hpf (0-5) H 05/17/22 17:22 Amorphous Sediment Not Reportable 05/17/22 17:22 Urine Bacteria 1+ /hpf (NONE) H 05/17/22 17:22 Discharge Plan Discharge Patient Disposition: Home Clinical Impression: Pyelonephritis Condition: Stable Prescriptions: New ciprofloxacin HCl 500 mg tablet 500 mg PO BID 7 Days Qty: 14 0RF ondansetron 4 mg tablet,disintegrating 4 mg PO Q8H PRN (Reason: nausea and vomiting) Qty: 15 0RF No Action ibuprofen 800 mg tablet 800 mg PO Q8H PRN (Reason: pain) 0RF Lantus Solostar U-100 Insulin 100 unit/mL (3 mL) insulin pen 60 unit SUBCUT DAILY 0RF venlafaxine [Effexor XR] 150 mg capsule,extended release 24hr 150 mg PO DAILY Qty: 30 2RF venlafaxine [Effexor XR] 75 mg capsule,extended release 24hr 75 mg PO DAILY Qty: 30 2RF trazodone 50 mg tablet 100 mg PO .HS Qty: 60 2RF Discharge Orders: Discharge ED (Routine); Ordered 05/17/22 Ordered By: Alvin Aguirre Discharge Diet: Regular Discharge Activity: Increase activity as tolerated Patient Instructions: Pyelonephritis Activity Restrictions/Additional Instructions: Follow-up with medical provider as directed in the next 3 to 5 days for ree valuation. Take medications as prescribed. Return to the ER or your medical provider if condition worsens. Please read and understand discharge instructions. Thank you for choosing [facility] for your healthcare needs today. Please realize this is an emergency room and that we are providing you with a medical screening exam and this may not be complete and all inclusive of all the testing and or work up that you may need to determine your ailment or severity of your illness. It is very important that you follow up as instructed or that you return to the Emergency Department should you have concerns or if your condition changes or worsens in any way. Coding Level of Care Code ED Composing Machine Operator for Ingrid Jaramillo Exam Comprehensive
--- NOTE | 2022-05-17 18:53 | PC.NURSE ---
Patient ambulated to bathroom.
[2022-05-17 18:54] LABS: HCG, Serum Qual Negative (Negative)
[2022-05-17 19:11] VITALS: RESP 18
[2022-05-17] MEDS: morphine 4 mg/mL SDV 1 mL IVP (19:11)
[2022-05-17] MEDS: ondansetron 2 mg/ML SDV 2 mL 4 MG IVP (19:11)
[2022-05-17 19:12] VITALS: BP 122/81; PULSE 85; RESP 18; O2SAT 99
[2022-05-17] MEDS: sodium chloride 0.9% 500 ML 999 ML IV (19:12)
--- NOTE | 2022-05-17 19:12 | PC.NURSE ---
Patient provided with warm blankets.
--- NOTE | 2022-05-17 19:25 | CTR_ITS ---
PROCEDURE INFORMATION: Exam: CT Abdomen And Pelvis Without Contrast Exam date and time: 05/17/2022 7:48 PM Age: 36 years old Clinical indication: Abdominal pain; Other: Bilat flank pain, bladder pain; Prior surgery; Surgery date: 6+ months; Surgery type: D&c; Additional info: Bladder pain and bilateral flank pain TECHNIQUE: Imaging protocol: Computed tomography of the abdomen and pelvis without contrast. Radiation optimization: All CT scans at this facility use at least one of these dose optimization techniques: automated exposure control; mA and/or kV adjustment per patient size (includes targeted exams where dose is matched to clinical indication); or iterative reconstruction. COMPARISON: CT abdomen pelvis w con* [id number] 10/11/2018 4:54 PM RADIATION DOSE METRICS: Total DLP (mGy-cm): 1128.55 FINDINGS: Lungs: Lung bases are clear. Liver: The liver is normal. Gallbladder and bile ducts: The gallbladder is normal. There is no biliary dilation. Pancreas: The pancreas is unremarkable. Spleen: The spleen is unremarkable. Adrenal glands: The adrenal glands are unremarkable. Kidneys and ureters: The kidneys are unremarkable. No hydronephrosis or stones. No ureteral dilation. Stomach and bowel: The stomach is unremarkable. The small bowel is nondilated. The colon is unremarkable. Appendix: The appendix is normal. Intraperitoneal space: There is no free air or significant intraperitoneal free fluid. Vasculature: There is mild aortic atherosclerotic disease. Lymph nodes: There is no lymphadenopathy in the retroperitoneum, mesentery, pelvis or inguinal regions. Urinary bladder: The urinary bladder is decompressed, preventing meaningful evaluation of wall thickness. Reproductive: The uterus is unremarkable. There is no adnexal mass or large cyst. Bones/joints: Intact posterolateral fusion at L4-L5. The pelvis and hips are unremarkable. Soft tissues: There is a small fat containing umbilical hernia. CT/CT abdomen pelvis wo con [id number] IMPRESSION: No acute findings.
[2022-05-17 19:56] LABS: Lactic Sepsis W/Reflex 3.5 mmol/L (0.5-2.2)
[2022-05-17 19:59] LABS: Alanine Aminotransferase 31 U/L (0-33); Albumin Level 4.1 g/dL (3.5-5.2); Alkaline Phosphatase 98 IU/L (35-105); Anion Gap 18.4 (5-19); Aspartate Amino Transferase 33 U/L (0-32); Blood Urea Nitrogen 5 mg/dL (6-20); Calcium 9.4 mg/dL (8.5-10.5); Carbon Dioxide 23 mmol/L (22-29); Chloride 100 mmol/L (98-107); Globulin 2.7 g/dL (1.3-4.6); Glomerular Filtration Rate 111.9 mL/min (90-130); Glucose 328 mg/dL (65-115); Osmolality Calculated 296 mOsm/kg (285-295); Potassium 3.4 mmol/L (3.5-5.1); Sodium 138 mmol/L (136-145); Total Bilirubin 0.3 mg/dL (0.15-1.2); Total Protein 6.8 g/dL (6.6-8.7)
[2022-05-17 20:13] LABS: Reflex Lactate Order REFLEX LACTIC ORDERD
[2022-05-17] MEDS: sodium chloride 0.9% 1,000 ML 999 ML IV (20:45)
[2022-05-17 21:03] LABS: Lactic Acid level (Lactate) 2.6 mmol/L (0.5-2.2)
[2022-05-17] MEDS: cefTRIAXone 1,000 MG in sodium chloride 0.9% (plus) 50 ML 100 MG IV (21:42)
[2022-05-17 22:13] VITALS: BP 127/84; PULSE 100; RESP 17; O2SAT 99
[2022-05-17 22:36] LABS: Lactic Sepsis W/Reflex 1.7 mmol/L (0.5-2.2)
[2022-05-17] MEDS: HYDROcodone-acetaminophen 5-325 mg Tablet 1 TAB PO (23:10)
[2022-05-17 23:14] VITALS: BP 119/76; PULSE 98; RESP 17; O2SAT 98
== END 2022-05-17 23:16 | disposition home or self-care (01) ==
PROVIDERS: Emergency Medicine; Emergency Provider Physician Assistant
DX: N12 Tubulo-interstitial nephritis, not specified as acute or chronic (principal); Z79.4 Long term (current) use of insulin; E11.9 Type 2 diabetes mellitus without complications; F17.210 Nicotine dependence, cigarettes, uncomplicated
CPT/HCPCS: 36415; 74176; 80053; 81001; 83605; 84703; 85025; 87040; 96365; 96375; 99284; J0696; J2270; J2405; J7030; J7040

== ENCOUNTER → 2022-05-29 10:51 | Outpatient (BNVA) | payer MEDICAID, SELFPAY | PROVIDERS: Visit Provider Registered Nurse | DX: N39.0 Urinary tract infection, site not specified (principal) | CPT/HCPCS: 81000 ==

== ENCOUNTER → 2022-06-04 08:33 | Outpatient (BNVA) | payer MEDICAID, SELFPAY | PROVIDERS: Visit Provider Registered Nurse | DX: E11.65 Type 2 diabetes mellitus with hyperglycemia (principal) | CPT/HCPCS: 80061; 83036 ==

== ENCOUNTER → 2022-07-22 14:01 | Outpatient (BNVA) | payer MEDICAID, SELFPAY | PROVIDERS: PCP Registered Nurse; Visit Provider Registered Nurse | DX: I95.1 Orthostatic hypotension (principal) | CPT/HCPCS: 80053; 81000; 85025 ==

== ENCOUNTER → 2022-07-23 09:07 | Outpatient (BNVA) | payer MEDICAID, SELFPAY | PROVIDERS: PCP Registered Nurse; Visit Provider Registered Nurse | DX: I95.1 Orthostatic hypotension (principal); R00.0 Tachycardia, unspecified | CPT/HCPCS: 80307 ==

== ENCOUNTER → 2022-08-22 14:32 | Outpatient (BNVA) | payer MEDICAID, SELFPAY | PROVIDERS: PCP Registered Nurse; Visit Provider Emergency Medicine | DX: R39.9 Unspecified symptoms and signs involving the genitourinary system (principal); N10 Acute pyelonephritis | CPT/HCPCS: 81000 ==

== ENCOUNTER → 2022-08-28 09:49 | Outpatient (BNVA) | payer MEDICAID, SELFPAY | PROVIDERS: PCP Registered Nurse; Visit Provider Registered Nurse | DX: E11.9 Type 2 diabetes mellitus without complications (principal); R00.0 Tachycardia, unspecified; Z79.4 Long term (current) use of insulin; I95.1 Orthostatic hypotension; F17.210 Nicotine dependence, cigarettes, uncomplicated | CPT/HCPCS: 80053; 83036; 84443; 85025 ==

== ENCOUNTER 2022-09-17 07:04 | Day surgery (SDC) | payer MEDICAID, SELFPAY ==
[2022-09-16 08:46] VITALS: BMI 2636.3
[2022-09-17 07:20] VITALS: BP 137/88; PULSE 101; RESP 18; TEMP 36.1; O2SAT 100
[2022-09-17] MEDS: sodium chloride 0.9% 1,000 ML 30 ML IV (07:26)
--- NOTE | 2022-09-17 07:31 | P.ANESASSM_ITS ---
Pre-Anesthetic Assessment Height/Weight: Height 15.24 cm Weight 61.235 kg Temp Pulse Resp BP Pulse Ox O2 Del Method 97 F L 101 H 18 137/88 100 09/17/22 07:20 09/17/22 07:20 09/17/22 07:20 09/17/22 07:20 09/17/22 07:20 09/17/22 07:20 Preop Diagnosis: GERD Operation Date: 09/17/22 08:30 Proposed Procedures p EGD 92953,R11.2,K21.9(Not Applicable) - Norman Rodriguez DO Familial anesthetic complications: PONV Was Beta Lillie taken within 24 hours: Yes (propranolol taken yesterday) Was Clonidine taken within 24 hours: N/A Last intake: Intake Last Liquid Date 09/15/22 Last Liquid Time 22:00 Last Solid Date 09/15/22 Last Solid Time 17:00 Social Tobacco Exam alert and oriented x 3 Airway Submandibular: within normal limits Cervical ROM: within normal limits Mallampati: Class II Dentition: chipped (bottom) and false (top dentures) Pulmonary None reported CV/HEM Arrythmia (tachy- takes propranolol) None reported Hepatic fatty liver GI Gastroesophageal Reflux Disease Metabolic Diabetes Mellitus [facility] None reported Neuropsych None reported Anesthetic Plan ASA status: 3 Anesthesia: Anesthesia Evaluation and MAC Risk of > 500 ml blood loss (7ml/kg in children): No Medications/Allergies Home Medications Medication Instructions Recorded Confirmed Last Taken Type ibuprofen 800 mg tablet 800 mg PO Q8H PRN pain 06/11/20 09/16/22 09/16/22 History insulin glargine 100 unit/mL (3 60 unit SUBCUT DAILY 03/05/21 09/16/22 09/16/22 History mL) subcutaneous pen (Lantus Solostar U-100 Insulin) blood sugar diagnostic (Accutrend #50 ea 06/19/22 09/15/22 09/16/22 Rx Glucose test strips) blood-glucose meter (Accu-Chek #1 ea 06/19/22 09/15/22 09/16/22 Rx Guide Glucose Meter) lancets (Accu-Chek Softclix #100 ea 06/19/22 09/15/22 09/16/22 Rx Lancets) pen needle, diabetic 31 gauge x #100 ea 08/28/22 09/15/2209/16/22 Rx 1/4 (1st Tier Unifine Pentips) propranolol 10 mg tablet 10 mg PO BID 30 days #60 tabs 08/28/22 09/16/22 09/16/22 Rx metoclopramide HCl 10 mg tablet 10 mg PO Q8H PRN nausea and 09/09/22 09/16/22 09/16/22 Rx (Reglan) vomiting #60 tabs ondansetron 8 mg disintegrating 8 mg PO Q8H PRN nausea and 09/09/22 09/16/22 09/16/22 Rx tablet vomiting 5 days #15 tabs bupropion HCl 300 mg 24 hr tablet, 300 mg PO QAM #30 tabs 09/10/22 09/16/22 09/16/22 Rx extended release sitagliptin 100 mg tablet (Januvia) 100 mg PO DAILY #90 tabs 09/10/22 09/16/22 09/16/22 Rx pantoprazole 40 mg tablet,delayed 40 mg PO BID 6 weeks #84 tabs 09/15/22 09/16/22 09/16/22 Rx release (Protonix) Allergies Allergy/AdvReac Type Severity Reaction Status Date / Time latex Allergy Mild ALGY-Rash Verified 09/16/22 08:43 adhesive tape Allergy Unknown Verified 09/16/22 08:43 [facility] Anesthesia Medical History (Updated 09/15/22 @ 14:03 by Norman Rodriguez DO) Bipolar 1 disorder GERD (gastroesophageal reflux disease) Hypercholesteremia Major depressive disorder, recurrent severe without psychotic features Nicotine dependence, cigarettes, uncomplicated Psychiatric care Sinus tachycardia Type 2 diabetes mellitus Surgical History History of dilation and curettage History of spinal fusion Sx in 2006 S/P right knee surgery patella reconstruction Family History Grandmother Stroke PAT Hypertension PAT CAD (coronary artery disease) pat Hyperlipidemia Lung disease Father Stroke Hypertension CAD (coronary artery disease) Cancer lung and colon cancer Hyperlipidemia Lung disease Grandmother Diabetes mat Lung disease Unknown Diabetes MAT. uncle, MAT cousin Sister Hypertension Chronic kidney disease (CKD) Mother Family history of thyroid problem Lung disease Denies family history of Clotting disorder Anesthesia complication Bleeding disorder Social History Smoking and tobacco status: current every day smoker cigarettes Years cigarettes smoked: 15 [ Other cigarette details: / PPD current. 29PY] and e- cigarettes Smoking risk assessment/counseling performed?: No Alcohol intake: never Desire information about alcohol rehabilitation?: No Counseling given: No Desire information about substance/drug rehabilitation?: No Counseling given: No Adopted: No Caregiver/support person: No Lives independently: No Household members: family Marital status: Number of children: 2 service: No Current occupational status: disabled Sexually active: Yes Current gender identity: Female Female Reproductive History Date of last menstrual period: 09/04/22 Para: 2 Spontaneous abortions: Yes (x4 possibly due to DM2) Data Anesthesia Cardiac Studies: Holter Monitor 07/30/22
[2022-09-17 07:37] LABS: Glucose Point of Care 86 mg/dL (70-110)
[2022-09-17 07:39] LABS: OR HCG Qualitative Urine Negative (Negative)
--- NOTE | 2022-09-17 09:35 | W.PM.OPSUD ---
Surgery/Procedure H&P Update DATE OF PROCEDURE: September 17, 2022 DATE H&P PERFORMED: 09/15/22 PREOP DIAGNOSIS: GERD PLANNED PROCEDURE: Operation Date: 09/17/22 08:30 Proposed Procedures p EGD 09261,R11.2,K21.9(Not Applicable) - Norman Rodriguez DO
[2022-09-17 09:50] VITALS: BP 116/79; PULSE 89; RESP 14; TEMP 36.4; O2SAT 98
[2022-09-17 10:01] VITALS: BP 118/81; PULSE 96; RESP 18; O2SAT 100
--- NOTE | 2022-09-17 12:46 | ANE.PACU2 ---
Inpatient post-anesthesia follow up: Airway intact: Yes Vital signs: Temperature 97.5 F Pulse Rate 96 Respiratory Rate 18 Blood Pressure 118/81 Pulse Oximetry 100 Oxygen Delivery Me thod Room Air Oxygen Flow Rate Fraction of Inspir ed Oxygen Hydration adequate: Yes Nausea and vomiting: No Pain level: 1 Mental status: Baseline
== END 2022-09-17 10:19 | disposition home or self-care (01) ==
PROVIDERS: Anesthesiology; PCP Registered Nurse; Visit Provider Surgery
PROC: 0DJ08ZZ Inspection of Upper Intestinal Tract, Via Natural or Artificial Opening Endoscopic (ICD-10-PCS; CPT 43235; principal; 2022-09-17 08:30)
DX: K21.9 Gastro-esophageal reflux disease without esophagitis (principal); K29.50 Unspecified chronic gastritis without bleeding; E11.9 Type 2 diabetes mellitus without complications
CPT/HCPCS: 36416; 43239; 81025; 82962; 84703; 88305; 88342; J2704; J7030

== ENCOUNTER 2022-10-03 12:47 | Outpatient (CLI) | payer MEDICAID, SELFPAY ==
--- NOTE | 2022-10-03 13:29 | MM_ITS ---
WS: [id number] DIAGNOSTIC BILATERAL DIGITAL BREAST TOMOSYNTHESIS MAMMOGRAPHY WITH CAD LEFT breast ultrasound, limited. HISTORY: Follow-up LEFT breast mass with history of benign biopsy. COMPARISON: 11/13/2020, 04/05/2021 and 04/17/2021 TECHNIQUE: Bilateral craniocaudad, mediolateral oblique, and mediolateral views are submitted with to mosynthesis and SM. Spot compression LEFT CC and MLO. Computer aided detection utilized. Breast composition: The breasts are heterogeneously dense, which may obscure small masses. Partially obscured lobulated soft tissue mass is posterior to the LEFT nipple is reidentified. Mass measures 13 x 12 mm and is slightly decreased in size since 11/13/2021. There is an adjacent biopsy clip. RIGHT breast is negative. LEFT breast ultrasound, limited. There is a soft tissue hypoechoic mass in the LEFT breast at 12:00 measuring 18 x 12.9 mm. Mass is ve ry slightly lobulated. This is a hypoechoic solid mass. Mass has slightly decreased in size as compar ed to 11/13/2021. MM/[place] [id number] IMPRESSION: BI-RADS: 2-Benign FOLLOW UP: 1 Year Follow-up No increase in size of a lobulated solid mass LEFT breast at 12:00. This mass h as been previously biopsied with negative pathology results.
== END 2022-10-03 12:48 | disposition home or self-care (01) ==
PROVIDERS: PCP Family Medicine; Visit Provider Family Medicine
DX: N63.25 Unspecified lump in the left breast, overlapping quadrants (principal)
CPT/HCPCS: 76642; 77062; G0279

== ENCOUNTER → 2022-10-14 08:17 | Outpatient (BNVA) | payer MEDICAID, SELFPAY | PROVIDERS: PCP Family Medicine; Visit Provider Family Medicine | DX: R39.9 Unspecified symptoms and signs involving the genitourinary system (principal); K52.9 Noninfective gastroenteritis and colitis, unspecified; R30.0 Dysuria; E11.65 Type 2 diabetes mellitus with hyperglycemia; E11.43 Type 2 diabetes mellitus with diabetic autonomic (poly)neuropathy; K31.84 Gastroparesis; K21.9 Gastro-esophageal reflux disease without esophagitis | CPT/HCPCS: 81000 ==

== ENCOUNTER → 2022-10-20 10:49 | Outpatient (BNVA) | payer MEDICAID, SELFPAY | PROVIDERS: PCP Family Medicine; Visit Provider Family Medicine | DX: K52.9 Noninfective gastroenteritis and colitis, unspecified (principal); K21.9 Gastro-esophageal reflux disease without esophagitis; E11.9 Type 2 diabetes mellitus without complications; Z79.4 Long term (current) use of insulin; M54.9 Dorsalgia, unspecified; G89.29 Other chronic pain | CPT/HCPCS: 87338 ==

== ENCOUNTER → 2022-11-04 10:07 | Outpatient (BNVA) | payer MEDICAID, SELFPAY | PROVIDERS: PCP Family Medicine; Visit Provider Family Medicine | DX: E11.319 Type 2 diabetes mellitus with unspecified diabetic retinopathy without macular edema (principal); Z72.51 High risk heterosexual behavior; E11.65 Type 2 diabetes mellitus with hyperglycemia; K29.70 Gastritis, unspecified, without bleeding; B96.81 Helicobacter pylori [H. pylori] as the cause of diseases classified elsewhere | CPT/HCPCS: 86592; 87806 ==

== ENCOUNTER → 2022-11-20 12:15 | Outpatient (BNVA) | payer MEDICAID, SELFPAY | PROVIDERS: PCP Family Medicine; Visit Provider Family Medicine | DX: Z30.9 Encounter for contraceptive management, unspecified (principal) | CPT/HCPCS: 81025 ==

== ENCOUNTER → 2022-12-11 10:16 | Outpatient (BNVA) | payer MEDICAID, SELFPAY | PROVIDERS: PCP Family Medicine; Referring Provider Family Medicine; Visit Provider Anesthesiology Pain Medicine | DX: M54.16 Radiculopathy, lumbar region (principal) | CPT/HCPCS: 72110 ==

== ENCOUNTER 2022-12-20 16:55 | Emergency (ER) | payer MEDICAID, SELFPAY ==
[2022-12-20 17:13] VITALS: BP 119/69; PULSE 108; RESP 19; TEMP 36.3; O2SAT 100; BMI 20.3
--- NOTE | 2022-12-20 17:26 | XRR_ITS ---
PROCEDURE INFORMATION: Exam: XR Sacrum and Coccyx, 2 or More Views Exam date and time: 12/20/2022 5:36 PM Age: 37 years old Clinical indication: Injury or trauma; Fall; Blunt trauma (contusions or hematomas); Injury date: 12/20/22; Injury details: Fell on ice today; Prior surgery; Additional info: Fall/pain TECHNIQUE: Imaging protocol: XR of the sacrum and coccyx, 2 or more views. COMPARISON: CT abdomen pelvis [facility] [id number] 05/17/2022 7:48 PM FINDINGS: Bones/joints: There are posterior and interbody fusion changes at the L4-L5 level. Soft tissues: Normal. Gastrointestinal tract: Colonic constipation is present. XR/XR coccyx 2V [id number] IMPRESSION: No acute findings.Colonic constipation is present.
--- NOTE | 2022-12-20 17:26 | XRR_ITS ---
PROCEDURE INFORMATION: Exam: XR Spine; Lumbar Exam date and time: 12/20/2022 5:36 PM Age: 37 years old Clinical indication: Injury or trauma; Injury: Fall on ice; Injury date: 12/20/22; Prior surgery; Additional info: Fall/pain TECHNIQUE: Imaging protocol: XR of the spine. Exam focused on the lumbar spine. Views: 1 view. 1 view. COMPARISON: CR XR lumbar spine min 4V [id number] 12/11/2022 10:22 AM FINDINGS: Bones/joints: Status post L4-L5 posterior and interbody lumbar fusion. There are bilateral pedicle screws and stabilization bars in place. Interbody bone graft markers are appropriately positioned in the L4-L5 interbody disc space. Soft tissues: Normal. XR/XR lumbar spine 1V port [id number] IMPRESSION: No acute findings.Non acute findings as described above.
[2022-12-20 17:27] VITALS: BP 119/69; PULSE 108; RESP 19; O2SAT 100
--- NOTE | 2022-12-20 17:36 | ED_ITS ---
HPI - Back Pain/Injury General: Chief Complaint: Back Pain/Injury Stated Complaint: fall, lower back injury Time Seen by Provider: 12/20/22 17:29 Source: patient Mode of arrival: ambulatory Limitations: no limitations History of Present Illness: This 37-year-old female presents to the ER for evaluation of back pain that started following a fall. She slipped on ice and landed on her buttocks. Since then, her lower back has been hurting. She is able to stand and mobilize though with an antalgic gait. Patient drove herself to the ER. Review of Systems General: Reports: 10 or more systems reviewed and unremarkable except in HPI and below Musc: Reports: back pain PFSH ED PFSH: Medical History Bipolar 1 disorder Generalized anxiety disorder GERD (gastroesophageal reflux disease) Helicobacter pylori gastritis Hypercholesteremia Major depressive disorder, recurrent severe without psychotic features Nicotine dependence, cigarettes, uncomplicated Psychiatric care Sinus tachycardia Type 2 diabetes mellitus Surgical History History of dilation and curettage History of spinal fusion Sx in 2006 S/P right knee surgery patella reconstruction Family History Grandmother Stroke PAT Hypertension PAT CAD (coronary artery disease) pat Hyperlipidemia Lung disease Father Stroke Hypertension CAD (coronary artery disease) Cancer lung and colon cancer Hyperlipidemia Lung disease Grandmother Diabetes mat Lung disease Unknown Diabetes MAT. uncle, MAT cousin Sister Hypertension Chronic kidney disease (CKD) Mother Family history of thyroid problem Lung disease Denies family history of Clotting disorder Anesthesia complication Bleeding disorder Social History Smoking and tobacco status: current every day smoker e-cigarettes E-Cigarette Details: vaporizer device Smoking risk assessment/counseling performed?: No Alcohol intake: never Desire information about alcohol rehabilitation?: No Counseling given: No Desire information about substance/drug rehabilitation?: No Counseling given: No Adopted: No Caregiver/support person: No Lives independently: No Household members: family Marital status: Number of children: 2 service: No Current occupational status: disabled Sexually active: Yes Current gender identity: Female Female Reproductive History: Date of last menstrual period: 05/10/22 Para: 2 Spontaneous abortions: No Physical Exam Const: COMMON NORMALS: no acute distress, patient oriented x3, no limitations and alert Neck/C-Spine: COMMON NORMALS: full ROM and supple Resp: COMMON NORMALS: normal respiratory effort, No retractions, No use of accessory muscles and clear to auscultation bilaterally AUSCULTATION: clear to auscultation bilaterally Cardio: COMMON NORMALS: regular rate, regular rhythm and No murmurs present (Cardio) RATE: regular rate RHYTHM: regular rhythm Back/Pelvis: COMMON NORMALS: no thoracic nor lumbar tenderness OTHER: Tenderness in the lumbar spine. No redness, swelling or step deformity. Sensations are intact in both lower extremities. Extremity: GENERAL: Yes normal exam except as noted Neuro: COMMON NORMALS: patient oriented x3 and no focal motor deficits SENSORIUM/ORIENTATION: Yes alert Course Vital Signs: Vital signs: Vital Signs Temperature 97.3 F L 12/20/22 17:13 Pulse Rate 91 12/20/22 18:52 Respiratory Rate 16 12/20/22 18:52 Blood Pressure 128/75 12/20/22 18:52 Pulse Oximetry 97 12/20/22 18:52 Oxygen Delivery Me thod 12/20/22 17:27 MDM - Back Pain/Injury Medical Decision Making Medical decision making: X-rays are negative for fracture/dislocation. She will be treated symptomatically. Labs Radiology Impressions Coccyx X-Ray 12/20/22 17:26 IMPRESSION: No acute findings.Colonic constipation is present. Lumbar Spine X-Ray 12/20/22 17:26 IMPRESSION: No acute findings.Non acute findings as described above. Discharge Plan Discharge Patient Disposition: Home Clinical Impression: Contusion of lower back, Fall Condition: Stable Prescriptions: New tramadol 50 mg tablet 50 mg PO QID PRN (Reason: pain) Qty: 20 0RF No Action propranolol 10 mg tablet 10 mg PO BID 30 Days Qty: 60 0RF (DME) pen needle, diabetic [1st Tier Unifine Pentips] 31 gauge x 1/4 needle See Rx Instructions .Route Qty: 100 0RF Rx Instructions: As directed (DME) blood-glucose meter [Accu-Chek Guide Glucose Meter] Misc See Rx Instructions .Route Qty: 1 0RF Rx Instructions: daily (DME) lancets [Accu-Chek Softclix Lancets] Misc See Rx Instructions .Route Qty: 100 0RF Rx Instructions: two times daily clonazepam 0.5 mg tablet 0.5 mg PO BID PRN (Reason: anxiety) Qty: 60 1RF metoclopramide HCl [Reglan] 10 mg tablet 10 mg PO Q8H PRN (Reason: nausea and vomiting) Qty: 60 0RF ondansetron 8 mg tablet,disintegrating 8 mg PO Q8H PRN (Reason: nausea and vomiting) 5 Days Qty: 15 0RF pantoprazole [Protonix] 40 mg tablet,delayed release (DR/EC) 40 mg PO BID 42 Days Qty: 84 0RF insulin glargine [Lantus Solostar U-100 Insulin] 100 unit/mL (3 mL) insulin pen 60 unit SUBCUT DAILY Qty: 15 8RF norgestimate-ethinyl estradiol [Fcm-Tw-Yihnedbn] 0.18/0.215/0.25 mg-25 mcg tablet 1 tab PO DAILY Qty: 84 0RF acetaminophen [Tylenol] 325 mg tablet 500 mg PO QID PRN tizanidine 4 mg tablet 4 mg PO BID PRN (Reason: muscle spasticity) Qty: 60 0RF loperamide 2 mg tablet 2 mg PO QID PRN (Reason: loose stool) Qty: 90 0RF (DME) OneTouch Verio test strips Strip See Rx Instructions .ROUTE .COMPLEX Qty: 50 0RF Dose Instruction: USE TO TEST TWO TIMES DAILY Rx Instructions: USE TO TEST TWO TIMES DAILY bupropion HCl 300 mg tablet extended release 24 hr See Rx Instructions .ROUTE .COMPLEX Qty: 30 0RF Dose Instruction: TAKE 1 TABLET BY MOUTH ONCE DAILY IN THE MORNING Rx Instructions: TAKE 1 TABLET BY MOUTH ONCE DAILY IN THE MORNING Januvia 100 mg tablet 100 mg PO DAILY Qty: 90 1RF Discharge Orders: Discharge ED (Routine); Ordered 12/21/22 Ordered By: Kyra Byers Referrals: Hunter Mckinney MD [Primary Care Provider] - Discharge Diet: Usual diet Patient Instructions: Opioid Safety, Pain Management Activity Restrictions/Additional Instructions: Take tramadol as needed for pain. You may add Tylenol or Motrin to it. Follow-up with your primary care physician in a week for reevaluation. Return with new or worsening symptoms. Coding Level of Care Code ED Driver License Reviewing Officer for Chg Fwd Exam Detailed
[2022-12-20] MEDS: ketorolac 60 mg/2 mL INJ IM (18:02)
[2022-12-20 18:52] VITALS: BP 128/75; PULSE 91; RESP 16; O2SAT 97
== END 2022-12-20 18:54 | disposition home or self-care (01) ==
PROVIDERS: Emergency Provider Family Medicine; PCP Family Medicine
DX: S30.0XXA Contusion of lower back and pelvis, initial encounter (principal); Z79.4 Long term (current) use of insulin; F17.290 Nicotine dependence, other tobacco product, uncomplicated; E11.9 Type 2 diabetes mellitus without complications; W00.0XXA Fall on same level due to ice and snow, initial encounter
CPT/HCPCS: 72020; 72220; 96372; 99284; J1885

== ENCOUNTER 2023-01-30 10:29 | Outpatient (CLI) | payer MEDICAID, SELFPAY ==
--- NOTE | 2023-01-30 10:15 | USCV_ITS ---
Charlene Gan Age: 37 Gender: F : 1985 Exam Date: 01/30/2023 11:16 Ordering Phys: Michael Reynoso MD ([email or web address]) Technologist: JAREK Exam Location: [facility] – [place] Indication: TACHYCARDIA BP: 116 / 78 HR: 67 Rhythm: Sinus Technical Quality: Adequate MEASUREMENTS (Male / Female) Normal Values 2D ECHO LVOT Diameter 2.0 cm LV Ejection Fraction MOD 2C 56.3 % LV Ejection Fraction 2C AL 55.0 % LA Diameter 2.6 cm LA Width 2.7 cm LA Height 4.0 cm RA Width 2.8 cm RA Height 3.9 cm Aorta at Sinotubular Diameter 2.3 cm IVC Diameter 1.7 cm M-MODE Aortic Annulus Diameter 2.5 cm LA Ao Ratio MM 1.1 MV E Point Septal Separation 0.6 cm DOPPLER AV Peak Velocity 108.3 cm/s MV Peak Velocity 94.0 cm/s MV Area PHT 3.9 cm squared Mitral E to A Ratio 0.9 MV E' Velocity 43.5 cm/s Mitral E to MV E' Ratio 7.2 Mitral E to LV E' Lateral Ratio 6.3 Mitral E to LV E' Septal Ratio 8.3 TR Peak Velocity 106.5 cm/s TR Peak Gradient 4.5 mmHg TR Mean Velocity 77.6 cm/s TR Mean Gradient 2.6 mmHg TR Velocity Time Integral 23.9 cm TV Peak E Velocity 34.0 cm/s Right Atrial Pressure 3.0 mmHg Pulmonary Artery Systolic Pressu 7.5 mmHg PV Peak Velocity 80.0 cm/s RV Acceleration Time 0.2 s RV Ejection Time 0.4 s RV AcT/ET 0.5 FINDINGS Left Ventricle Normal LV size with borderline low ejection fraction of 52%. Mild diffuse hypokinesia of the left ventricle.Grade I/IV diastolic dysfunction (abnormal relaxation filling pattern), normal to mildly elevated filling pressures. Right Ventricle The right ventricle is normal in size and function. Right Atrium The right atrium is normal in size. Left Atrium The left atrium is normal in size. Mitral Valve Trace mitral valve regurgitation. Aortic Valve No gross abnormalities noted Tricuspid Valve No gross abnormalities noted Pulmonic Valve No gross abnormalities noted Pericardium Normal pericardium without effusion. Aorta Normal ascending aorta dimension. IVC The inferior vena cava appears normal. CONCLUSIONS Normal LV size with borderline low ejection fraction of 52%. Mild diffuse hypokinesia of the left ventricle.Grade I/IV diastolic dysfunction (abnormal relaxation filling pattern), normal to mildly elevated filling pressures. Trace mitral valve regurgitation. There is no pericardial effusion. There are no intracardiac masses. No similar previous studies are available for comparison Dr Michael Reynoso MD FAC (Electronically Signed) Final Date: 31 January 2023 15:12 S
== END 2023-01-30 10:30 | disposition home or self-care (01) ==
LOC: RAD 10:30
PROVIDERS: PCP Family Medicine; Visit Provider Internal Medicine Cardiovascular Disease
DX: R00.0 Tachycardia, unspecified (principal); I34.0 Nonrheumatic mitral (valve) insufficiency
CPT/HCPCS: 93306

== ENCOUNTER → 2023-03-04 11:32 | Outpatient (BNVA) | payer MEDICAID, SELFPAY | PROVIDERS: PCP Family Medicine; Visit Provider Family Medicine | DX: E11.9 Type 2 diabetes mellitus without complications (principal); Z79.4 Long term (current) use of insulin | CPT/HCPCS: 83036 ==

== ENCOUNTER 2023-03-05 08:22 | Outpatient (CLI) | payer MEDICAID, SELFPAY ==
--- NOTE | 2023-03-05 09:15 | US_ITS ---
WS: [id number] RIGHT UPPER QUADRANT ULTRASOUND HISTORY: RUQ pain COMPARISON: 10/11/2018 Liver: 14.1 cm in length. Normal size liver and echogenicity. No bile duct dilatation or mass. Portal Vein: Normal hepatopetal flow with monophasic waveform. Gallbladder: Normally distended gallbladder with no stones or wall thickening. CBD: 0.7 cm Pancreas: Normal size and echogenicity. Right kidney: 12.2 cm in length. Normal size and echogenicity. No hydronephrosis or mass. Aorta and IVC: Unremarkable abdominal aorta and IVC. No ascites. US/US gall bladder [id number] IMPRESSION: Normal RIGHT upper quadrant ultrasound.
== END 2023-03-05 08:23 | disposition home or self-care (01) ==
LOC: RAD 08:23
PROVIDERS: PCP Family Medicine; Visit Provider Family Medicine
DX: R10.11 Right upper quadrant pain (principal)
CPT/HCPCS: 76705

== ENCOUNTER → 2023-06-03 12:16 | Outpatient (BNVA) | payer MEDICAID, SELFPAY | PROVIDERS: PCP Family Medicine; Visit Provider Family Medicine | DX: E11.9 Type 2 diabetes mellitus without complications (principal); Z79.4 Long term (current) use of insulin; R19.7 Diarrhea, unspecified; K52.9 Noninfective gastroenteritis and colitis, unspecified; I95.1 Orthostatic hypotension; R00.0 Tachycardia, unspecified; M54.9 Dorsalgia, unspecified; G89.29 Other chronic pain; F33.2 Major depressive disorder, recurrent severe without psychotic features; F41.1 Generalized anxiety disorder | CPT/HCPCS: 83630; 87177; 87209; 87324; 87338; 87493; 87506 ==

== ENCOUNTER → 2023-06-30 16:48 | Outpatient (BNVA) | payer MEDICAID, SELFPAY | PROVIDERS: PCP Family Medicine; Visit Provider Family Medicine | DX: E11.9 Type 2 diabetes mellitus without complications (principal); Z79.4 Long term (current) use of insulin; A04.72 Enterocolitis due to Clostridium difficile, not specified as recurrent; K52.9 Noninfective gastroenteritis and colitis, unspecified; R00.0 Tachycardia, unspecified; M54.9 Dorsalgia, unspecified; G89.29 Other chronic pain; F33.2 Major depressive disorder, recurrent severe without psychotic features; F41.1 Generalized anxiety disorder | CPT/HCPCS: 87493 ==

== ENCOUNTER → 2023-07-14 15:46 | Outpatient (BNVA) | payer MEDICAID, SELFPAY | PROVIDERS: PCP Family Medicine; Visit Provider Nurse Practitioner | DX: R52 Pain, unspecified (principal); N76.4 Abscess of vulva | CPT/HCPCS: 87070 ==

== ENCOUNTER 2023-07-16 12:42 | Outpatient (CLI) | payer MEDICAID, SELFPAY ==
[2023-07-16 13:09] VITALS: BMI 22.3
--- NOTE | 2023-07-16 13:12 | ECG_ITS ---
[facility] Test Date: 2023-07-16 Pat Name: Charlene Gan Department: Room: Gender: Female Planner Internship: : 1985 Requested By: Michael Reynoso Order Number: [id number] Martha MD: Michael Reynoso M.D. Interpretive Statements NAME OF STUDY: DOBUTAMINE STRESS ECHOCARDIOGRAM INDICATION: CARDIOMYOPATHY; CHEST PAIN PROCEDURE: At the baseline, the blood pressure was 169/86 with a heart rate of 83. The electrocardiogram showed normal sinus rhythm with normal ST Ts. The dobutamine was infused over a period of 10 minutes and 3 seconds. The maximum heart rate obtained was 169 (93% of the maximum predicted heart rate). The blood pressure at that time was 164/65 mmHg. The patient did not have any chest pain or any significant electrocardiogram changes with the dobutamine infusion. The physical examination remained unchanged. No arrhythmias were seen on the monitor. During the recovery phase, the patient did not have any specific symptoms. The blood pressure at the end of the recovery phase was 98/61 with a heart rate of 94 per minute. Echocardiographic pictures were taken at the baseline, low and peak dobutamine infusion and during the recovery phase, in the standard views. CONCLUSION: 1. Normal EKG response to dobutamine stress 2. No dobutamine induced chest pain or cardiac arrhythmia 3. Normal heart rate and blood pressure response to the dobutamine fusion 4. For the echocardiographic response to dobutamine infusion please refer to the separate report Electronically Signed On 07-21-2023 9:44:15 CDT by Michael Reynoso M.D. [email or web address]
--- NOTE | 2023-07-16 13:13 | USCV_ITS ---
Dobutamine Stress Echo Charlene Gan Age: 38 Gender: F : 1985 Exam Date: 07/16/2023 13:38 Ordering Phys: Michael Reynoso MD ([email or web address]) Technologist: Dylan Chew [place] [facility] [place]: Cardiomyopathy; Chest Pain Rhythm: Sinus Patient History: Smoker; + family hx of CAD Cardiac Medications: Beta Lillie, Statins Medications in past 24 hours: NONE Contrast: Total Dose (mL): Stress Results Protocol: Pharmacologic Peak Dose (???g/kg/min): 40 Duration (min:sec): 10:03 Atropine:(mg) Target HR: 153 Double Product: 24118 Resting HR: 81 Resting BP: 169 / 86 Peak HR: 169 Peak BP: 180 / 86 Max Predicted HR: 180 94 % Max Predicted HR Stress Summary: The hemodynamic response to stress was normal. BP Response: Normal Reason for Termination: The patients target heart rate was achieved Cardiac Symptoms: Short of Breath ECG Analysis Resting EKG: Please see separate report Stress EKG: Please see separate report Arrhythmia: Please see separate MEASUREMENTS (Male/Female) Normal Values FINDINGS The patient echocardiogram revealed normal LV size and ejection fraction of 55%. Segmental wall motion analysis revealed relative hypokinesia of the septum and the anteroseptal segments. Normal aortic root. No pericardial effusion. With the low and peak dobutamine infusion, there was good augmentation of all the segments within no dobutamine due to wall motion abnormalities. During the recovery phase, the segmental wall motion returned back to the baseline CONCLUSIONS 1. Normal echocardiographic response to dobutamine fusion 2. Further EKG response regurgitation, previous refer to the separate report Low probability for coronary ischemia, based on the above findings Dr Michael Reynoso MD [facility] (Electronically Signed) Final Date: 21 July 2023 08:43 S
[2023-07-16] MEDS: DOBUTtamine 200 MG in sodium chloride 0.9% 34 ML 10.89 MG IV (13:38)
[2023-07-16] MEDS: metoprolol tartrate 1 mg/1 mL SDV 5 mL 5 MG IVP (13:50)
[2023-07-16 14:17] VITALS: BP 98/61; PULSE 87
== END 2023-07-16 12:43 | disposition home or self-care (01) ==
PROVIDERS: PCP Family Medicine; Visit Provider Internal Medicine Cardiovascular Disease
DX: I42.9 Cardiomyopathy, unspecified (principal); R07.9 Chest pain, unspecified; F17.200 Nicotine dependence, unspecified, uncomplicated; Z82.49 Family history of ischemic heart disease and other diseases of the circulatory system
CPT/HCPCS: 36415; 93017; 93350; J1250; J3490; J7050

== ENCOUNTER 2023-10-22 10:10 | Outpatient (CLI) | payer MEDICAID, SELFPAY ==
--- NOTE | 2023-10-22 10:22 | XR_ITS ---
WS: [id number] Left shoulder, 2 views, 10/22/2023 Clinical Data: shoulder pain Comparison: None. Findings: No fractures or dislocations are seen. The AC joint is normal. The adjacent left clavicle, left scapu la and ribs are normal. The soft tissues are unremarkable. Impression: Negative left shoulder.
--- NOTE | 2023-10-22 10:22 | XR_ITS ---
WS: [id number] Right shoulder, 2 views, 10/22/2023 Clinical Data: shoulder pain Comparison: None. Findings: No fractures or dislocations are seen. The AC joint is normal. The adjacent right clavicle, right sca pula and ribs are normal. The soft tissues are unremarkable. Impression: Negative right shoulder.
--- NOTE | 2023-10-22 10:49 | XR_ITS ---
WS: [id number] Lumbar spine with flexion, extension, and neutral lateral, 10/22/2023 Clinical Data: LOW BACK PAIN; TO EVAL FOR SPINAL STABILITY Comparison: Lumbar spine, 12/20/2022 Findings: No compression fractures or subluxation is seen. There is a posterior lumbar fusion at L4-L5 with carole ateral pedicle screws and connecting rods. There is an artificial disc at L4-L5. No disc space narrow ing is seen. No instability of the posterior lumbar fusion is seen. Impression: Stable posterior lumbar fusion L4-L5.
== END 2023-10-22 10:11 | disposition home or self-care (01) ==
PROVIDERS: PCP Family Medicine; Visit Provider Nurse Practitioner
DX: M25.511 Pain in right shoulder (principal); M25.512 Pain in left shoulder; M96.1 Postlaminectomy syndrome, not elsewhere classified; M54.50 Low back pain, unspecified; Z98.1 Arthrodesis status
CPT/HCPCS: 72120; 73030

== ENCOUNTER → 2023-11-11 12:02 | Outpatient (BNVA) | payer MEDICAID, SELFPAY | PROVIDERS: PCP Family Medicine; Visit Provider Family Medicine | DX: E11.9 Type 2 diabetes mellitus without complications (principal); Z79.4 Long term (current) use of insulin; I95.1 Orthostatic hypotension; F33.2 Major depressive disorder, recurrent severe without psychotic features; F41.1 Generalized anxiety disorder; M54.9 Dorsalgia, unspecified; G89.29 Other chronic pain; K52.9 Noninfective gastroenteritis and colitis, unspecified; E61.1 Iron deficiency | CPT/HCPCS: 82728; 83036; 83550; 85025 ==

== ENCOUNTER 2023-12-04 09:00 | Oncology outpatient (recurring) (ONCR) | payer MEDICAID, SELFPAY ==
[2023-11-23] MEDS: iron sucrose 200 MG in sodium chloride 0.9% (100 ml) 100 ML 220 MG IV (09:43)
[2023-11-23] MEDS: sodium chloride 0.9% 250 ML 75 ML IV (09:43)
[2023-11-23 10:38] VITALS: BP 107/68; PULSE 71; O2SAT 99
[2023-11-25 09:00] VITALS: BP 148/82; PULSE 93; RESP 16; O2SAT 98
[2023-11-25] MEDS: sodium chloride 0.9% 250 ML 75 ML IV (09:06)
[2023-11-25] MEDS: iron sucrose 200 MG in sodium chloride 0.9% (100 ml) 100 ML 220 MG IV (09:06)
[2023-11-25 10:00] VITALS: BP 123/78; PULSE 92; RESP 16; O2SAT 98
[2023-11-27] MEDS: iron sucrose 200 MG in sodium chloride 0.9% (100 ml) 100 ML 220 MG IV (09:12)
[2023-11-27 09:15] VITALS: BP 131/74; PULSE 80; RESP 16; O2SAT 99
[2023-11-27 09:46] VITALS: BP 127/80; PULSE 81; RESP 16; O2SAT 98
[2023-12-02] MEDS: iron sucrose 200 MG in sodium chloride 0.9% (100 ml) 100 ML 220 MG IV (09:25)
[2023-12-02 09:56] VITALS: BP 124/82; PULSE 87; O2SAT 97
[2023-12-02 09:57] VITALS: BP 96/64; PULSE 85; RESP 18; TEMP 36.6; O2SAT 98
[2023-12-04 09:13] VITALS: BP 121/80; PULSE 88; RESP 16; TEMP 36.8; O2SAT 100
[2023-12-04] MEDS: iron sucrose 200 MG in sodium chloride 0.9% (100 ml) 100 ML 220 MG IV (09:18)
[2023-12-04 09:59] VITALS: BP 114/79; PULSE 87; RESP 17; TEMP 36.7; O2SAT 99
== END 2023-12-16 23:59 | disposition home or self-care (01) ==
PROVIDERS: PCP Family Medicine; Visit Provider Family Medicine
DX: E61.1 Iron deficiency (principal); Z53.9 Procedure and treatment not carried out, unspecified reason
CPT/HCPCS: 96365; J1756; J7050

== ENCOUNTER → 2024-02-05 10:52 | Outpatient (BNVA) | payer MEDICAID, SELFPAY | PROVIDERS: PCP Family Medicine; Visit Provider Family Medicine | DX: R30.0 Dysuria (principal) | CPT/HCPCS: 81000 ==

== ENCOUNTER 2024-02-16 10:57 | Emergency (ER) | payer MEDICAID, SELFPAY ==
[2024-02-16 11:01] VITALS: BP 117/70; PULSE 107; RESP 15; TEMP 36.9; O2SAT 100; BMI 23.7
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
[2024-02-16] MEDS: ketorolac 60 mg/2 mL INJ IM (11:28)
[2024-02-16] MEDS: dexamethasone 10 mg/mL INJ 8 MG IM (11:29)
[2024-02-16 12:11] VITALS: BP 117/70; PULSE 107; RESP 15; TEMP 36.9; O2SAT 100
== END 2024-02-16 12:12 | disposition home or self-care (01) ==
PROVIDERS: Emergency Provider Physician Assistant; PCP Family Medicine
DX: S16.1XXA Strain of muscle, fascia and tendon at neck level, initial encounter (principal); Z79.4 Long term (current) use of insulin; F17.290 Nicotine dependence, other tobacco product, uncomplicated; E11.9 Type 2 diabetes mellitus without complications; V89.2XXA Person injured in unspecified motor-vehicle accident, traffic, initial encounter
CPT/HCPCS: 72040; 96372; 99284; J1100; J1885

== ENCOUNTER 2024-02-25 14:34 | Emergency (ER) | payer MEDICAID, SELFPAY ==
[2024-02-25] VITALS (13 sets, daily range): BP systolic 99–126; BP diastolic 59–82; PULSE 118–128; RESP 15; TEMP 36.9; O2SAT 93–99; BMI 23.7
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
[2024-02-25 15:19] LABS: Basophils % 0.2 %; Eosinophils % 0.1 %; Hematocrit 38.4 % (36-47); Lymphocytes # 1.1 10^3/uL (0.8-4.8); Lymphocytes % 7.4 %; Mean Corpuscular HGB Conc 31.3 g/dL (30-55); Mean Corpuscular Hemoglobin 25.2 pg (27-33); Mean Corpuscular Volume 80.5 fl (85-98); Mean Platelet Volume 11.8 fL (7.4-10.4); Monocytes # 0.7 10^3/uL (0.2-0.9); Neutrophils # 12.86 10^3/uL (1.8-7.7); Neutrophils % 86.8 %; Nucleated Red Blood Cells % 0 %; Platelet Count 326 10^3/cmm (157-399); Red Blood Count 4.77 10^6/uL (3.85-5.65); Red Cell Distribution Width 17.2 % (12.1-15.1); White Blood Count 14.83 10^3/uL (3.29-11.43)
[2024-02-25] MEDS: sodium chloride 0.9% 1,000 ML 999 ML IV ×2 (15:24→16:12)
[2024-02-25] MEDS: diphenhydrAMINE 50 mg/mL SDV 1mL IVP (15:25)
[2024-02-25] MEDS: metoclopramide 5 mg/mL SDV 2 mL 10 MG IVP (15:25)
[2024-02-25 15:37] LABS: Alanine Aminotransferase 42 U/L (0-33); Albumin Level 3.9 g/dL (3.5-5.2); Alkaline Phosphatase 140 U/L (35-105); Anion Gap 21.6 (5-19); Aspartate Amino Transferase 27 U/L (0-32); Blood Urea Nitrogen 11 mg/dL (6-20); Calcium 9.4 mg/dL (8.5-10.5); Carbon Dioxide 29 mmol/L (22-29); Chloride 92 mmol/L (98-107); Creatinine Clr Calc Pharmacy 96.1817; Globulin 4.7 g/dL (1.3-4.6); Glomerular Filtration Rate 69.3 mL/min (90-130); Glucose 403 mg/dL (65-115); Lipase 28 U/L (13-60); Osmolality Calculated 302 mOsm/kg (285-295); Potassium 4.6 mmol/L (3.5-5.1); Sodium 138 mmol/L (136-145); Total Bilirubin 0.7 mg/dL (0.15-1.2); Total Protein 8.6 g/dL (6.6-8.7)
[2024-02-25 15:40] LABS: HCG, Serum Qual Negative (Negative)
[2024-02-25 16:09] LABS: Glucose Point of Care 366 mg/dL (70-110)
[2024-02-25 17:51] LABS: Add Urine Microscopic? YES; Bilirubin Urine Neg (Negative); Blood Urine 2+ (Negative); Glucose Urine UA 4+ (Normal); Ketones Urine 1+ (Negative); Leukocyte Esterase Urine Trace (Negative); Nitrate Urine Negative (Negative); Protein Urine Trace (Negative); Urine Appearance Clear (CLEAR); Urine Color Yellow (Yellow); Urobilinogen Urine Norm (Negative); pH Urine 8 (5-7)
[2024-02-25 18:11] LABS: Bacteria Urine TRACE /hpf; RBC Urine 0-4 /hpf (0-2); Squamous Epithelial Cell Urine 0-4 /hpf (0-5); WBC Urine 15-25 /hpf (0-5)
[2024-02-25 18:12] LABS: Add Urine Culture? Yes
[2024-02-25] MEDS: cefTRIAXone 1,000 MG in sodium chloride 0.9% (plus) 50 ML 100 MG IV ×2 (18:17→20:31)
[2024-02-25 20:07] LABS: Lactic Sepsis W/Reflex 1.3 mmol/L (0.5-2.2)
[2024-02-25] MEDS: sodium chloride 0.9% 1,000 ML 150 ML IV (20:59)
[2024-02-25] MEDS: ibuprofen 800 mg tablet PO (21:03)
== END 2024-02-25 22:52 | disposition short-term general hospital (02) ==
PROVIDERS: Emergency Provider Emergency Medicine; PCP Family Medicine
DX: N12 Tubulo-interstitial nephritis, not specified as acute or chronic (principal); N15.1 Renal and perinephric abscess; E11.65 Type 2 diabetes mellitus with hyperglycemia; F17.290 Nicotine dependence, other tobacco product, uncomplicated
CPT/HCPCS: 36415; 36416; 70450; 74177; 80053; 81001; 82962; 83605; 83690; 84703; 85025; 87040; 87077; 87086; 87186; 96361; 96365; 96366; 96375; 99285; J0696; J1200; J2765; J7030; Q9967

== ENCOUNTER → 2024-03-08 09:36 | Outpatient (BNVA) | payer MEDICAID, SELFPAY | PROVIDERS: PCP Family Medicine; Visit Provider Family Medicine | DX: E11.65 Type 2 diabetes mellitus with hyperglycemia | CPT/HCPCS: 80053; 85025 ==

== ENCOUNTER 2024-03-16 12:59 | Outpatient (CLI) | payer MEDICAID, SELFPAY ==
--- NOTE | 2024-03-16 13:15 | CTR_ITS ---
PROCEDURE INFORMATION: Exam: CT Abdomen And Pelvis Without Contrast Exam date and time: 03/16/2024 1:20 PM Age: 38 years old Clinical indication: Condition or disease; Kidney or ureter condition; Other: Left renal abscess; Prior surgery; Surgery date: 6+ months; Surgery type: Spine; Additional info: Renal abscess left, hospitalized 02/24 for L sided renal abscess. 3 week f/u scan TECHNIQUE: Imaging protocol: Computed tomography of the abdomen and pelvis without contrast. Radiation optimization: All CT scans at this facility use at least one of these dose optimization techniques: automated exposure control; mA and/or kV adjustment per patient size (includes targeted exams where dose is matched to clinical indication); or iterative reconstruction. COMPARISON: CT abdomen pelvis w con* [id number] 02/25/2024 3:54 PM RADIATION DOSE METRICS: Total DLP (mGy-cm): 335.86 FINDINGS: Lungs: Right lower lobe granuloma. Liver: Normal appearance of the liver. Gallbladder and bile ducts: No calcified stones or ductal dilation. Pancreas: No ductal dilation. Spleen: Unremarkable. Adrenal glands: Unremarkable. Kidneys and ureters: No hydronephrosis. No renal calculi. Previously described left renal abscess is not visualized. Stomach and bowel: No obstruction. No mucosal thickening. Appendix: Normal appendix. Intraperitoneal space: No free air. No significant fluid collection. Vasculature: Unremarkable. Lymph nodes: No enlarged lymph nodes. Urinary bladder: Unremarkable as visualized. Reproductive: Unremarkable as visualized. Bones/joints: No acute fracture. L4-L5 posterior spinal fusion. Soft tissues: Unremarkable. CT/CT abdomen pelvis wo con [id number] IMPRESSION: Previously described left renal abscess is not visualized and may be resolved, although evaluation is limited without IV contrast.
== END 2024-03-16 13:00 | disposition home or self-care (01) ==
LOC: RAD 12:59
PROVIDERS: PCP Family Medicine; Visit Provider Family Medicine
DX: N15.1 Renal and perinephric abscess (principal)
CPT/HCPCS: 74176

== ENCOUNTER → 2024-05-04 10:52 | Outpatient (CLI) | payer MEDICAID, SELFPAY ==
--- NOTE | 2024-05-04 10:56 | CTR_ITS ---
PROCEDURE INFORMATION: Exam: CT Lumbar Spine Without Contrast Exam date and time: 05/04/2024 11:02 AM Age: 38 years old Clinical indication: Low back pain; Prior surgery; Surgery date: 6+ months; Patient HX: Chronic back pain with numbness in bilateral legs, worse on the left side; Additional info: Vertebrogenic low back pain TECHNIQUE: Imaging protocol: Computed tomography of the lumbar spine without contrast. Axial, coronal and sagittal reformatted images were created and reviewed. Radiation optimization: All CT scans at this facility use at least one of these dose optimization techniques: automated exposure control; mA and/or kV adjustment per patient size (includes targeted exams where dose is matched to clinical indication); or iterative reconstruction. COMPARISON: CR XR lumbar spine f/e only [id number] 10/22/2023 10:51 AM RADIATION DOSE METRICS: Total DLP (mGy-cm): 381.61 FINDINGS: Bones/joints: Osteopenia. Straightening of the normal lumbar lordosis. Status post L4-L5 posterior/interbody fusion. No CT evidence of acute fracture, dislocation or subluxation. Alignment anatomic. Vertebral body heights maintained. Multilevel spondylosis, characterized by disc space narrowing, osteophytosis, shallow disc bulges and facet/ligamentous hypertrophy. Mild left neural foraminal narrowing at L4-L5 and L5-S1. No significant spinal stenosis. Soft tissues: Grossly unremarkable. CT/CT lumbar spine wo con* [id number] IMPRESSION: 1. Mild left neural foraminal narrowing at L4-L5 and L5-S1. 2. Additional findings, as above.
== END | disposition home or self-care (01) ==
LOC: RAD 10:51
PROVIDERS: PCP Family Medicine; Visit Provider Nurse Practitioner
DX: M99.63 Osseous and subluxation stenosis of intervertebral foramina of lumbar region (principal); M99.64 Osseous and subluxation stenosis of intervertebral foramina of sacral region; M85.80 Other specified disorders of bone density and structure, unspecified site; M25.78 Osteophyte, vertebrae; M47.896 Other spondylosis, lumbar region; M43.26 Fusion of spine, lumbar region
CPT/HCPCS: 72131

== ENCOUNTER → 2024-06-08 09:08 | Outpatient (BNVA) | payer MEDICAID, SELFPAY | PROVIDERS: PCP Family Medicine; Visit Provider Registered Nurse Neonatal Intensive Care | DX: R30.0 Dysuria (principal); E11.9 Type 2 diabetes mellitus without complications; Z79.4 Long term (current) use of insulin; E61.1 Iron deficiency; R39.9 Unspecified symptoms and signs involving the genitourinary system | CPT/HCPCS: 80053; 81000; 82728; 83036; 83550; 85025; 87086 ==

== ENCOUNTER → 2024-09-21 15:07 | Outpatient (BNVA) | payer MEDICAID, SELFPAY | PROVIDERS: PCP Family Medicine; Visit Provider Nurse Practitioner | DX: R39.9 Unspecified symptoms and signs involving the genitourinary system (principal) | CPT/HCPCS: 81000 ==

== ENCOUNTER 2024-10-28 13:55 | Emergency (ER) | payer MEDICAID, SELFPAY ==
[2024-10-28 14:49] VITALS: BP 130/90; PULSE 141; RESP 20; TEMP 36.6; O2SAT 99; BMI 23.7
[2024-10-28] MEDS: morphine 4 mg/mL SDV 1 mL IVP (15:01)
[2024-10-28] MEDS: sodium chloride 0.9% 1,000 ML 999 ML IV ×2 (15:01→15:44)
[2024-10-28] MEDS: metoclopramide 5 mg/mL SDV 2 mL 10 MG IVP (15:02)
[2024-10-28] MEDS: diphenhydrAMINE 50 mg/mL SDV 1mL IVP (15:02)
[2024-10-28 15:07] LABS: Basophils # 0.1 10^3/uL (0.0-0.1); Basophils % 0.7 %; Eosinophils # 0.1 10^3/uL (0.0-0.8); Eosinophils % 0.7 %; Hematocrit 39.7 % (36-47); Lymphocytes # 1.9 10^3/uL (0.8-4.8); Lymphocytes % 17.7 %; Mean Corpuscular HGB Conc 30.7 g/dL (30-55); Mean Platelet Volume 12.5 fL (7.4-10.4); Monocytes # 0.5 10^3/uL (0.2-0.9); Monocytes % 4.5 %; Neutrophils # 8.19 10^3/uL (1.8-7.7); Neutrophils % 76.2 %; Nucleated Red Blood Cells % 0 %; Platelet Count 301 10^3/cmm (157-399); Red Blood Count 5.09 10^6/uL (3.85-5.65); Red Cell Distribution Width 15.3 % (12.1-15.1); White Blood Count 10.73 10^3/uL (3.29-11.43)
--- NOTE | 2024-10-28 15:15 | ED_ITS ---
HPI - Nausea/Vomiting/Diarrhea 2 General: Chief complaint: Nausea/Vomiting/Diarrhea Stated complaint: NVD Time Seen by Provider: 10/28/24 14:50 Source: patient Mode of arrival: ambulatory Limitations: no limitations History of Present Illness: 39-year-old female states been having na usea vomiting for the last 2 days. States she been vomiting constantly she having some epigastric cramping pain denies any severe pain she had a history gastroparesis and vomiting before. She denies any fever she denies any worsening improving factors. She is tachycardic here and currently vomiting while in the room. Associated nausea: Yes Associated symtoms: Reports nausea; Denies chest pain, dysuria or headache(s) Related Data Home Medications Medication Instructions Recorded Confirmed acetaminophen 325 mg tablet 500 mg PO QID PRN Pain 12/11/22 10/28/24 (Tylenol) hydrocodone 5 mg-acetaminophen 325 1 tab PO TID PRN Pain 02/02/24 10/28/24 mg tablet ibuprofen 200 mg tablet 600 mg PO Q6H PRN Pain 02/16/24 10/28/24 loperamide 2 mg-simethicone 125 mg 1 tab PO Q3H PRN Diarrhea 02/16/24 10/28/24 tablet loratadine 10 mg tablet (Claritin) 10 mg PO DAILY PRN Allergy Symptoms 02/16/24 10/28/24 Previous Rx's Medication Instructions Recorded lancets (Accu-Chek Softclix #100 ea 06/19/22 Lancets) blood sugar diagnostic (OneTouch #50 ea 11/11/22 Verio test strips) blood-glucose meter (Accu-Chek #1 ea 06/01/23 Guide Glucose Meter) blood-glucose meter #1 ea 02/05/24 pen needle, diabetic 31 gauge x #100 ea 03/08/2411/19 (1st Tier Unifine Pentips) rosuvastatin 5 mg tablet (Crestor) 5 mg PO DAILY #90 tabs 04/20/24 ferrous gluconate 324 mg (38 mg 324 mg PO .q48hrs 3 months #45 tabs 06/15/24 iron) tablet insulin glargine 100 unit/mL (3 30 unit (0.3 mL) SUBCUT BID #15 mL 07/04/24 mL) subcutaneous pen (Lantus Solostar U-100 Insulin) metoprolol tartrate 25 mg tablet 25 mg PO BID 30 days #60 tabs 09/19/24 sitagliptin phosphate 50 mg tablet 50 mg PO DAILY #15 tabs 10/05/24 venlafaxine 75 mg capsule,extended 75 mg PO DAILY #15 caps 10/05/24 release 24 hr (Effexor XR) ondansetron 4 mg disintegrating 4 mg PO Q6H PRN nausea and 10/28/24 tablet vomiting #14 tabs Allergies Allergy/AdvReac Type Severity Reaction Status Date / Time latex Allergy Mild ALGY-Rash Verified 09/21/24 14:57 adhesive tape Allergy Unknown Verified 09/21/24 14:57 Review of Systems 2 Const: Denies: fever(s), chills, body aches or change in appetite ENMT: Denies: throat pain or dental pain Card: Denies: chest pain Resp: Denies: dyspnea GI: Reports: abdominal pain, nausea and vomiting : Denies: dysuria Musc: Denies: neck pain or back pain Skin/Breast: Denies: rash Neuro: Denies: headache(s) PFSH ED 2 PFSH: Medical History Helicobacter pylori gastritis Generalized anxiety disorder GERD (gastroesophageal reflux disease) Sinus tachycardia Nicotine dependence, cigarettes, uncomplicated Psychiatric care Major depressive disorder, recurrent severe without psychotic features Type 2 diabetes mellitus Bipolar 1 disorder Hypercholesteremia Surgical History History of dilation and curettage S/P right knee surgery patella reconstruction History of spinal fusion Sx in 2006 Family History Grandmother Stroke PAT Hypertension PAT CAD (coronary artery disease) pat Hyperlipidemia Lung disease Father Stroke Hypertension CAD (coronary artery disease) Cancer lung and colon cancer Hyperlipidemia Lung disease Grandmother Diabetes mat Lung disease Unknown Diabetes MAT. uncle, MAT cousin Sister Hypertension Chronic kidney disease (CKD) Mother Family history of thyroid problem Lung disease Denies family history of Clotting disorder Anesthesia complication Bleeding disorder Social History Smoking and tobacco/nicotine status: current every day tobacco/nicotine user e- cigarettes E-Cigarette Details: vaporizer device and with nicotine Alcohol intake: current Alcohol intake frequency: holidays/special occasions only Substance/Drug Use: never Adopted: No Caregiver/support person: No Lives independently: No Household members: family Marital status: Number of children: 2 service: No Current occupational status: disabled Sexually active: Yes Do you think of yourself as: Straight/Heterosexual Current gender identity: Female Female Reproductive History: Para: 2 Spontaneous abortions: No Course 2 Vital Signs: Vital signs: Vital Signs Temperature 97.9 F 10/28/24 14:49 Pulse Rate 110 H 10/28/24 17:00 Respiratory Rate 20 H 10/28/24 14:49 Blood Pressure 125/92 10/28/24 17:00 Pulse Oximetry 92 10/28/24 17:00 Oxygen Delivery Me thod Room Air 10/28/24 17:00 MDM - Nausea/Vomiting/Diarrhea Medical Decision Making Patient presents here with nausea vomiting she feels much improved here after fluids and nausea meds. She has been able to tolerate p.o. here she is wanting go home I feel she is stable for discharge abdominal exam is benign no signs of acute abdomen. Medical Records I reviewed the patient's medical records. Lab Data I reviewed the patient's lab results. 10/28/24 14:54 10/28/24 14:54 Laboratory Results WBC 10.73 10^3/uL (3.29-11.43) 10/28/24 14:54 RBC 5.09 10^6/uL (3.85-5.65) 10/28/24 14:54 Hgb 12.20 g/dL (11.27-16.99) 10/28/24 14:54 Hct 39.7 % (36-47) 10/28/24 14:54 MCV 78.0 fl (85-98) L 10/28/24 14:54 MCH 24.0 pg (27-33) L 10/28/24 14:54 MCHC 30.7 g/dL (30-55) 10/28/24 14:54 RDW 15.3 % (12.1-15.1) H 10/28/24 14:54 Plt Count 301 10^3/cmm (157-399) 10/28/24 14:54 MPV 12.5 fL (7.4-10.4) H 10/28/24 14:54 Neut % (Auto) 76.2 % 10/28/24 14:54 Lymph % (Auto) 17.7 % 10/28/24 14:54 Patrick % (Auto) 4.5 % 10/28/24 14:54 Eos % (Auto) 0.7 % 10/28/24 14:54 Baso % (Auto) 0.7 % 10/28/24 14:54 Neut # (Auto) 8.19 10^3/uL (1.8-7.7) H 10/28/24 14:54 Lymph # (Auto) 1.9 10^3/uL (0.8-4.8) 10/28/24 14:54 Patrick # (Auto) 0.5 10^3/uL (0.2-0.9) 10/28/24 14:54 Eos # (Auto) 0.1 10^3/uL (0.0-0.8) 10/28/24 14:54 Baso # (Auto) 0.1 10^3/uL (0.0-0.1) 10/28/24 14:54 Nucleated RBC % (auto) 0 % 10/28/24 14:54 Nucleated RBCs # 0.0 /100WBC 10/28/24 14:54 Specimen Type Arterial 10/28/24 15:35 Sample Site Brachial, left 10/28/24 15:35 ABG pH 7.39 (7.35-7.45) 10/28/24 15:35 ABG pCO2 34.9 mmHg (35-45) L 10/28/24 15:35 ABG pO2 77.9 mmHg (80.0-100.0) L 10/28/24 15:35 ABG PO2/FiO2 Ratio 370 10/28/24 15:35 ABG HCO3 21.3 mmol/L (22-26) L 10/28/24 15:35 ABG Base Excess -3.1 mmol/L (-2.0-2.0) L 10/28/24 15:35 Dayron Test N/a 10/28/24 15:35 Hematocrit 34.6 % (37-47) L 10/28/24 15:35 O2 Delivery Device Room air 10/28/24 15:35 FiO2 21.0 % 10/28/24 15:35 Manager Android ID Amh 10/28/24 15:35 Sodium 135 mmol/L (136-145) L 10/28/24 14:54 Potassium 3.9 mmol/L (3.5-5.1) 10/28/24 14:54 Chloride 93 mmol/L (98-107) L 10/28/24 14:54 Carbon Dioxide 20 mmol/L (22-29) L 10/28/24 14:54 Anion Gap 25.9 (5-19) H 10/28/24 14:54 BUN 10 mg/dL (6-20) 10/28/24 14:54 Creatinine 1.1 mg/dL (0.5-0.9) H 10/28/24 14:54 GFR Calculation 54.7 mL/min (90-130) L 10/28/24 14:54 Glucose 437 mg/dL (65-115) H 10/28/24 14:54 Calculated Osmolality 298 mOsm/kg (285-295) H 10/28/24 14:54 Calcium 10.4 mg/dL (8.5-10.5) 10/28/24 14:54 Total Bilirubin 0.6 mg/dL (0.15-1.2) 10/28/24 14:54 AST 150 U/L (0-32) H 10/28/24 14:54 ALT 66 U/L (0-33) H 10/28/24 14:54 Alkaline Phosphatase 151 U/L (35-105) H 10/28/24 14:54 Total Protein 8.9 g/dL (6.6-8.7) H 10/28/24 14:54 Albumin 4.8 g/dL (3.5-5.2) 10/28/24 14:54 Globulin 4.1 g/dL (1.3-4.6) 10/28/24 14:54 Lipase 41 U/L (13-60) 10/28/24 14:54 HCG, Qual Negative (Negative) 10/28/24 14:54 Urine Color Yellow (Yellow) 10/28/24 15:46 Urine Appearance Clear (CLEAR) 10/28/24 15:46 Urine pH 5.5 (5-7) 10/28/24 15:46 Ur Specific [place] 1.041 (1.005-1.030) H 10/28/24 15:46 Urine Protein 1+ (Negative) A 10/28/24 15:46 Urine Glucose (UA) 3+ (Normal) H 10/28/24 15:46 Urine Ketones 2+ (Negative) H 10/28/24 15:46 Urine Blood Negative (Negative) 10/28/24 15:46 Urine Nitrate Negative (Negative) 10/28/24 15:46 Urine Bilirubin Negative (Negative) 10/28/24 15:46 Urine Urobilinogen 0.2 mg/dL (Negative) 10/28/24 15:46 Ur Leukocyte Esterase Negative (Negative) 10/28/24 15:46 Urine RBC 0-2 /hpf (0-2) 10/28/24 15:46 Urine WBC 0-5 /hpf (0-5) 10/28/24 15:46 Ur Squamous Epith Cells 0-5 /hpf (0-5) 10/28/24 15:46 Amorphous Sediment Not Reportable 10/28/24 15:46 Urine Bacteria None seen /hpf (NONE) 10/28/24 15:46 Hyaline Casts 0.40 /lpf 10/28/24 15:46 Serum Ketones Negative (Negative) 10/28/24 14:54 All radiology interpretation(s) finalized by discharge EKG Data EKG 1: I personally reviewed and interpreted this EKG as follows: EKG interpretation date: 10/28/24 EKG interpretation time: 14:48 Interpretation: sinus tach hr [address] elevation qrs 77 qtc 441 Discharge Plan Discharge Patient Disposition: Home Clinical Impression: Vomiting Condition: Stable Prescriptions: New ondansetron 4 mg tablet,disintegrating 4 mg PO Q6H PRN (Reason: nausea and vomiting) Qty: 14 0RF No Action (DME) lancets [Accu-Chek Softclix Lancets] Misc See Rx Instructions .Route Qty: 100 0RF Rx Instructions: two times daily hydrocodone-acetaminophen 5-325 mg tablet 1 tab PO TID PRN (Reason: Pain) (DME) blood-glucose meter Misc See Rx Instructions .MEDSUPPLY Qty: 1 0RF Rx Instructions: Use as directed for checking blood sugar acetaminophen [Tylenol] 325 mg tablet 500 mg PO QID PRN (Reason: Pain) (DME) blood-glucose meter [Accu-Chek Guide Glucose Meter] Misc See Rx Instructions .Route Qty: 1 0RF Rx Instructions: daily (DME) pen needle, diabetic [1st Tier Unifine Pentips] 31 gauge x 1/4 needle See Rx Instructions .Route Qty: 100 5RF Rx Instructions: As directed rosuvastatin [Crestor] 5 mg tablet 5 mg PO DAILY Qty: 90 1RF (DME) OneTouch Verio test strips Strip See Rx Instructions .ROUTE .COMPLEX Qty: 50 0RF Dose Instruction: USE TO TEST TWO TIMES DAILY Rx Instructions: USE TO TEST TWO TIMES DAILY ferrous gluconate 324 mg (38 mg iron) tablet 324 mg PO .q48hrs 90 Days Qty: 45 0RF insulin glargine [Lantus Solostar U-100 Insulin] 100 unit/mL (3 mL) insulin pen 30 unit SUBCUT BID Qty: 15 2RF metoprolol tartrate 25 mg tablet 25 mg PO BID 30 Days Qty: 60 0RF sitagliptin phosphate 50 mg tablet 50 mg PO DAILY Qty: 15 0RF venlafaxine [Effexor XR] 75 mg capsule,extended release 24hr 75 mg PO DAILY Qty: 15 0RF ibuprofen 200 mg Tablet 600 mg PO Q6H PRN (Reason: Pain) loperamide-simethicone [Imodium Advanced] 2-125 mg Tablet 1 tab PO Q3H PRN (Reason: Diarrhea) Rx Instructions: do not exceed 4 tabs in 24 hrs loratadine [Claritin] 10 mg Tablet 10 mg PO DAILY PRN (Reason: Allergy Symptoms) Discharge Orders: Discharge ED (Routine); Ordered 10/28/24 Ordered By: David Bentley Referrals: Hunter Mckinney MD [Primary Care Provider] - Discharge Diet: Advance as tolerated Discharge Activity: Resume usual activity Patient Instructions: Acute Nausea and Vomiting (ED) Coding Level of Care Code ED Communication Instructor for Ingrid Jaramillo
[2024-10-28 15:21] LABS: HCG, Serum Qual Negative (Negative)
[2024-10-28 15:25] LABS: Alanine Aminotransferase 66 U/L (0-33); Albumin Level 4.8 g/dL (3.5-5.2); Alkaline Phosphatase 151 U/L (35-105); Anion Gap 25.9 (5-19); Aspartate Amino Transferase 150 U/L (0-32); Blood Urea Nitrogen 10 mg/dL (6-20); Calcium 10.4 mg/dL (8.5-10.5); Carbon Dioxide 20 mmol/L (22-29); Chloride 93 mmol/L (98-107); Creatinine Clr Calc Pharmacy 80.3373; Globulin 4.1 g/dL (1.3-4.6); Glomerular Filtration Rate 54.7 mL/min (90-130); Glucose 437 mg/dL (65-115); Lipase 41 U/L (13-60); Osmolality Calculated 298 mOsm/kg (285-295); Potassium 3.9 mmol/L (3.5-5.1); Sodium 135 mmol/L (136-145); Total Bilirubin 0.6 mg/dL (0.15-1.2); Total Protein 8.9 g/dL (6.6-8.7)
--- NOTE | 2024-10-28 15:36 | ECG_ITS ---
[facility] Test Date: 2024-10-28 Pat Name: Charlene Gan Department: Room: Gender: Female Customer Experience Analyst: : 1985 Requested By: David Bentley Order Number: [id number] Martha MD: Paul Nguyen M.D. Measurements Intervals [place] Rate: 132 P: 62 WV: 135 QRS: 63 QRSD: 77 T: 61 QT: 363 QTc: 539 Interpretive Statements SINUS TACHYCARDIA NONSPECIFIC ST & T-WAVE ABNORMALITY No previous ECG available for comparison Electronically Signed On 10-28-2024 21:55:38 HYDROCHLORIC MANUFACTURING SUPERVISOR by Paul Nguyen M.D. [email or web address]
[2024-10-28 15:40] VITALS: BP 127/81; PULSE 93; O2SAT 100
[2024-10-28 15:43] LABS: Ketone (Acetest) Serum Negative (Negative)
[2024-10-28 15:46] LABS: ABG PCO2 34.9 mmHg (35-45); ABG PH Result 7.39 (7.35-7.45); Arterial Blood Gas Hematocrit 34.6 % (37-47); Base Excess ABG -3.1 mmol/L (-2.0-2.0); Blood Gas Operator Identificat AMH; Blood Gas Sample Site Brachial, left; Blood Gas Sample Type Arterial; HCO3 ABG 21.3 mmol/L (22-26); Oxygen Device ROOM AIR; PO2 ABG 77.9 mmHg (80.0-100.0); PO2 FiO2 Ratio Arterial Blood 370
[2024-10-28 16:01] LABS: Bilirubin Urine Negative (Negative); Blood Urine Negative (Negative); Glucose Urine UA 3+ (Normal); Ketones Urine 2+ (Negative); Leukocyte Esterase Urine Negative (Negative); Nitrate Urine Negative (Negative); Protein Urine 1+ (Negative); Urine Appearance Clear (CLEAR); Urine Color Yellow (Yellow); Urobilinogen Urine 0.2 mg/dL (Negative); pH Urine 5.5 (5-7)
[2024-10-28 16:07] LABS: Add Urine Microscopic? YES; Bacteria Urine None Seen /hpf; RBC Urine 0-2 /hpf (0-2); Squamous Epithelial Cell Urine 0-5 /hpf (0-5); WBC Urine 0-5 /hpf (0-5)
[2024-10-28 16:08] LABS: Specific Gravity, Urine 1.041 (1.005-1.030)
[2024-10-28 17:00] VITALS: BP 125/92; PULSE 110; O2SAT 92
[2024-10-28 17:59] VITALS: BP 120/78; PULSE 102; O2SAT 100
== END 2024-10-28 18:03 | disposition home or self-care (01) ==
PROVIDERS: Emergency Provider Emergency Medicine; PCP Family Medicine
DX: R11.10 Vomiting, unspecified (principal); Z79.4 Long term (current) use of insulin; F17.290 Nicotine dependence, other tobacco product, uncomplicated; E11.9 Type 2 diabetes mellitus without complications
CPT/HCPCS: 36600; 80053; 81001; 82009; 82803; 83690; 84703; 85025; 93005; 96361; 96374; 96375; 99284; J1200; J2270; J2765; J7030

== ENCOUNTER 2024-12-12 11:16 | Outpatient (CLI) | payer MEDICAID, SELFPAY ==
[2024-12-12 12:17] LABS: Estmated Average Glucose 280; Hemoglobin A1C 11.4 % (4.0-6.0)
[2024-12-12 12:42] LABS: Alanine Aminotransferase 46 U/L (0-33); Albumin Level 4.1 g/dL (3.5-5.2); Alkaline Phosphatase 120 U/L (35-105); Anion Gap 15.2 (5-19); Aspartate Amino Transferase 80 U/L (0-32); Blood Urea Nitrogen 6 mg/dL (6-20); Calcium 9.2 mg/dL (8.5-10.5); Carbon Dioxide 22 mmol/L (22-29); Chloride 102 mmol/L (98-107); Ferritin 72 ng/mL (15-150); Globulin 3.1 g/dL (1.3-4.6); Glomerular Filtration Rate 110.2 mL/min (90-130); Glucose 230 mg/dL (65-115); Iron 26 ug/dL (37-145); Osmolality Calculated 285 mOsm/kg (285-295); Percent Saturation 8.7 % (20-50); Potassium 4.2 mmol/L (3.5-5.1); Sodium 135 mmol/L (136-145); Thyroid Stimulating Hormone 1.68 uIU/mL (0.27-4.20); Total Bilirubin 0.3 mg/dL (0.15-1.2); Total Iron Binding Capacity 296 mcg/dl; Total Protein 7.2 g/dL (6.6-8.7); Unsaturated Iron Binding 270 ug/dL (112-347)
[2024-12-12 13:15] LABS: Free T4 Free Thyroxine 1.17 ng/dL (0.82-1.77)
[2024-12-12 13:23] LABS: Follicle Stimulating Hormone 3.6 mIU/mL; Luteinizing Hormone 4.4 mIU/mL (0.5-41.7); Progesterone 11.97 ng/mL
== END 2024-12-12 11:17 | disposition home or self-care (01) ==
LOC: LAB 11:18
PROVIDERS: PCP Family Medicine; Visit Provider Family Medicine
DX: E11.9 Type 2 diabetes mellitus without complications (principal); Z79.4 Long term (current) use of insulin; R00.0 Tachycardia, unspecified; N95.1 Menopausal and female climacteric states; E61.1 Iron deficiency
CPT/HCPCS: 36415; 80053; 82672; 82728; 83001; 83002; 83036; 83540; 83550; 84144; 84439; 84443

== ENCOUNTER 2025-01-13 10:00 | Oncology outpatient (recurring) (ONCR) | payer MEDICAID, SELFPAY ==
[2024-12-29] MEDS: iron sucrose 200 MG in sodium chloride 0.9% (100 ml) 100 ML 220 MG IV (15:06)
[2024-12-29 15:48] VITALS: BP 96/61; PULSE 99; TEMP 36.5; O2SAT 98
[2025-01-02 15:02] VITALS: BP 95/62; PULSE 84; RESP 16; TEMP 36.1; O2SAT 98
[2025-01-02] MEDS: iron sucrose 200 MG in sodium chloride 0.9% (100 ml) 100 ML 220 MG IV (15:11)
[2025-01-02 15:55] VITALS: BP 97/62; PULSE 80; RESP 20; TEMP 36.3; O2SAT 93
[2025-01-09] MEDS: iron sucrose 200 MG in sodium chloride 0.9% (100 ml) 100 ML 220 MG IV (09:40)
[2025-01-09 10:19] VITALS: BP 107/68; PULSE 74; TEMP 36.9; O2SAT 95
[2025-01-11] MEDS: iron sucrose 200 MG in sodium chloride 0.9% (100 ml) 100 ML 220 MG IV (15:22)
[2025-01-11 16:01] VITALS: BP 116/80; PULSE 85; RESP 18; TEMP 37; O2SAT 99
[2025-01-13] MEDS: iron sucrose 200 MG in sodium chloride 0.9% (100 ml) 100 ML 220 MG IV (10:20)
[2025-01-13 10:44] VITALS: BP 98/64; PULSE 83; RESP 18; TEMP 37; O2SAT 96
== END 2025-01-13 23:59 | disposition home or self-care (01) ==
PROVIDERS: PCP Family Medicine; Visit Provider Family Medicine
DX: Z53.9 Procedure and treatment not carried out, unspecified reason; E61.1 Iron deficiency; Z79.899 Other long term (current) drug therapy
CPT/HCPCS: 96365; J1756

== ENCOUNTER → 2025-03-08 16:10 | Outpatient (BNVA) | payer MEDICAID, SELFPAY | PROVIDERS: PCP Family Medicine; Visit Provider Family Medicine | DX: E11.9 Type 2 diabetes mellitus without complications (principal); Z79.4 Long term (current) use of insulin; E61.1 Iron deficiency; R00.0 Tachycardia, unspecified; N95.1 Menopausal and female climacteric states | CPT/HCPCS: 80048; 82728; 83036; 83550 ==

== ENCOUNTER 2025-07-07 11:56 | Outpatient (CLI) | payer MEDICAID, SELFPAY ==
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
[2025-07-07 12:43] LABS: Estmated Average Glucose 298; Hemoglobin A1C 12.0 % (4.0-6.0)
[2025-07-07 12:57] LABS: Alanine Aminotransferase 56 U/L (0-33); Albumin Level 4.3 g/dL (3.5-5.2); Alkaline Phosphatase 168 U/L (35-105); Anion Gap 18.9 (5-19); Aspartate Amino Transferase 74 U/L (0-32); Blood Urea Nitrogen 8 mg/dL (6-20); Calcium 9.1 mg/dL (8.5-10.5); Carbon Dioxide 23 mmol/L (22-29); Chloride 94 mmol/L (98-107); Globulin 3.2 g/dL (1.3-4.6); Osmolality Calculated 296 mOsm/kg (285-295); Potassium 3.9 mmol/L (3.5-5.1); Sodium 132 mmol/L (136-145); Total Protein 7.5 g/dL (6.6-8.7)
[2025-07-07 12:59] LABS: Glucose 518 mg/dL (65-115)
== END 2025-07-07 11:57 | disposition home or self-care (01) ==
PROVIDERS: Absent Provider General Practice; PCP Family Medicine; Visit Provider Family Medicine
DX: E11.9 Type 2 diabetes mellitus without complications (principal); Z79.4 Long term (current) use of insulin; M25.561 Pain in right knee; M61.461 Other calcification of muscle, right lower leg
CPT/HCPCS: 36415; 73560; 80053; 83036

== ENCOUNTER → 2025-11-15 11:17 | Outpatient (BNVA) | payer MEDICAID, SELFPAY | PROVIDERS: PCP Family Medicine; Visit Provider Family Medicine | DX: E11.9 Type 2 diabetes mellitus without complications (principal); Z79.4 Long term (current) use of insulin; R00.0 Tachycardia, unspecified | CPT/HCPCS: 80053; 80061; 82728; 83036; 83550; 84439; 84443; 85025 ==